=== PATIENT | female | born 2000 | race Caucasian/White ===

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

== ENCOUNTER → 2022-04-28 11:44 | Outpatient (BNVA) | payer BC, MEDICAID, SELFPAY | PROVIDERS: Visit Provider Emergency Medicine | DX: R39.9 Unspecified symptoms and signs involving the genitourinary system (principal); Z32.02 Encounter for pregnancy test, result negative | CPT/HCPCS: 81000; 81025 ==

== ENCOUNTER → 2022-06-12 13:45 | Outpatient (BNVA) | payer BC, MEDICAID, SELFPAY | PROVIDERS: Visit Provider Obstetrics & Gynecology | DX: Z32.00 Encounter for pregnancy test, result unknown (principal) | CPT/HCPCS: 84702 ==

== ENCOUNTER 2022-07-24 12:16 | Emergency (ER) | payer BC, MEDICAID, SELFPAY ==
[2022-07-24 12:45] VITALS: BMI 19.2
[2022-07-24 12:49] VITALS: BP 91/60; PULSE 61; RESP 18; TEMP 36.9; O2SAT 98
--- NOTE | 2022-07-24 13:17 | W.ED.GENADLT ---
HPI - General Adult General: Chief complaint: General Medical Stated complaint: body pain 3xdays Time Seen by Provider: 07/24/22 12:23 History of Present Illness: Patient is a 22-year-old female who comes to the ED with muscle pain. Patient says 3 days ago on July 21 she was having some right upper thigh pain so she went to urgent care and they diagnosed her with a muscle strain of right groin region. Over the last couple days she started having muscle pain in both right and left thighs, lower back and bilateral shoulders. She states that any movement worsens pain. She describes the pain as an achy type pain. Denies any fevers, vomiting, abdominal pain, bladder or bowel symptoms. Associated symptoms: Deny chest pain, dyspnea, headache(s), nausea, rash, palpitations or vomiting Review of Systems Const: Denies: fever(s), chills or fatigue Eyes: Denies: change in vision or eye discomfort ENMT: Denies: throat pain, odynophagia, nasal discharge or nasal congestion Card: Denies: chest pain, palpitations, edema, swelling of feet/ankles, dyspnea on exertion or orthopnea Resp: Denies: dyspnea, productive cough or non-productive cough GI: Denies: abdominal pain, nausea, vomiting, diarrhea, constipation or hematochezia : Denies: flank pain, dysuria or hematuria Musc: Reports: back pain and extremity pain (Bilateral shoulder and bilateral thigh pain); Denies: neck pain or extremity swelling Skin/Breast: Denies: rash or new lesions Neuro: Denies: headache(s), numbness in extremities or weakness in extremities PFS ED PFSH: Medical History Migraines Nexplanon removal No pertinent past medical history neghx: htn,dm,thyroid,dvt/pe PCP: Surgical History No history of previous surgery Family History Grandmother Colon cancer Maternal--dx age unknown Hypertension Paternal Family/Other Diabetes Maternal Aunt Grandfather Hypertension Paternal Denies family history of Ovarian cancer Clotting disorder Heart disease Hypercholesteremia Breast cancer Anesthesia complication Bleeding disorder Uterine cancer Thyroid disease Stroke Social History Smoking and tobacco status: current every day smoker (cigarettes ) Second hand smoke exposure: No Alcohol intake: never Substance/Drug Use: never Female Reproductive History: Para: 0 Physical Exam Const: COMMON NORMALS: no acute distress, patient oriented x3 and alert HENMT: COMMON NORMALS: normocephalic HEAD & SCALP: normocephalic MOUTH: Normal oral and palatal mucosa present THROAT: posterior oropharynx normal and uvula midline Neck/C-Spine: COMMON NORMALS: supple GENERAL: Yes normal visual inspection Resp: COMMON NORMALS: normal respiratory effort, No retractions, No use of accessory muscles and clear to auscultation bilaterally AUSCULTATION: clear to auscultation bilaterally Cardio: COMMON NORMALS: regular rate, regular rhythm, S1 normal heart sound present, S2 normal heart sound present, No gallops present (Cardio), No clicks present (Cardio), No murmurs present (Cardio) and Peripheral pulses 2+ throughout RATE: regular rate RHYTHM: regular rhythm HEART SOUNDS: S1 normal heart sound present and S2 normal heart sound present PERIPHERAL PULSES: Peripheral pulses 2+ throughout GI: COMMON NORMALS: Normal to inspection, nondistended, normoactive bowel sounds present, Soft to palpation, non-tender and no masses PALPATION: Yes Soft to palpation : COMMON NORMALS: Yes no CVA tenderness BLADDER/KIDNEY EXAM: Yes no CVA tenderness Back/Pelvis: COMMON NORMALS: no CVA tenderness Extremity: COMMON NORMALS: normal to inspection and full ROM NARRATIVE EXTREMITY EXAM: Thigh muscle tenderness bilaterally. Patient also has tenderness to shoulders bilaterally but has full range of motion. Neuro: COMMON NORMALS: patient oriented x3 SENSORIUM/ORIENTATION: Yes alert GAIT: Yes Normal gait present Skin: GENERAL SKIN EXAM: dry skin Course Vital Signs: Vital signs: Vital Signs Temperature 98.4 F 07/24/22 12:49 Pulse Rate 61 07/24/22 12:49 Respiratory Rate 18 07/24/22 12:49 Blood Pressure 91/60 07/24/22 12:49 Pulse Oximetry 98 07/24/22 12:49 Oxygen Delivery Me thod Room Air 07/24/22 12:49 MDM - General Adult Medical Decision Making Patient is a 22-year-old female who comes to the ED with muscle pain. Patient says 3 days ago on July 21 she was having some right upper thigh pain so she went to urgent care and they diagnosed her with a muscle strain of right groin region. Over the last couple days she started having muscle pain in both right and left thighs, lower back and bilateral shoulders. She states that any movement worsens pain. She describes the pain as an achy type pain. Denies any fevers, vomiting, abdominal pain, bladder or bowel symptoms. Vitals stable. Patient appears nontoxic in no acute distress or pain. Thigh muscle tenderness bilaterally. Patient also has tenderness to shoulders bilaterally but has full range of motion. Patient was given dose of muscle relaxer and Toradol here in the ED. She was stable for discharge home and diagnosed with generalized muscle aches and was discharged home with a prescription for muscle relaxer and NSAID. Told to follow-up with PCP in the next week for reevaluation. Return to ED precautions given. Patient understood and agreed with plan. Discharge Plan Discharge Patient Disposition: Home Clinical Impression: Generalized muscle ache Condition: Stable Prescriptions: New ibuprofen 800 mg tablet 800 mg PO Q8H PRN (Reason: pain) Qty: 30 0RF cyclobenzaprine 10 mg tablet 10 mg PO BID PRN (Reason: muscle spasm) Qty: 20 0RF No Action rizatriptan [Maxalt] 10 mg tablet See Rx Instructions PO .COMPLEX Qty: 10 1RF Rx Instructions: take 1 tab at onset of headache; if no relief may repeat 1 tab after at least 2 hrs; max = 2 tabs/24 hr PO ibuprofen 600 mg tablet 600 mg PO Q8H PRN (Reason: pain) Qty: 30 0RF lidocaine-epinephrine (PF) 2 %-1:200,000 solution 7.5 ml SUBCUT ONCE Qty: 20 0RF povidone-iodine [Betadine Swabsticks] 10 % swab 1 applic topical ONCE Qty: 1 0RF norgestimate-ethinyl estradiol [Sprintec (28)] 0.25-35 mg-mcg tablet 1 tab PO DAILY Qty: 84 0RF meloxicam 7.5 mg tablet 7.5 mg PO DAILY Qty: 14 0RF Discharge Orders: Discharge ED (Routine); Ordered 07/24/22 Ordered By: Greg Contreras Referrals: Jagjit Flores MD [Primary Care Provider] - Discharge Diet: Regular Discharge Activity: Increase activity as tolerated Activity Restrictions/Additional Instructions: Follow-up with medical provider as directed in the next 5 to 7 days for reevaluation. Take medications as prescribed. Return to the ER or your medical provider if condition worsens. Please read and understand discharge instructions. Thank you for choosing [facility] for your healthcare needs today. Please realize this is an emergency room and that we are providing you with a medical screening exam and this may not be complete and all inclusive of all the testing and or work up that you may need to determine your ailment or severity of your illness. It is very important that you follow up as instructed or that you return to the Emergency Department should you have concerns or if your condition changes or worsens in any way. Coding Level of Care Code ED Printing Sales Representative for Veronique Herbert
[2022-07-24] MEDS: ketorolac 60 mg/2 mL INJ IM (13:55)
[2022-07-24] MEDS: methocarbamol 750 mg Tablet PO (13:56)
== END 2022-07-24 14:02 | disposition home or self-care (01) ==
PROVIDERS: Emergency Provider Physician Assistant; PCP Family Medicine
DX: M79.10 Myalgia, unspecified site (principal)
CPT/HCPCS: 96372; 99284; J1885

== ENCOUNTER → 2022-08-11 15:00 | Outpatient (BNVA) | payer BC, MEDICAID, SELFPAY | PROVIDERS: PCP Family Medicine; Visit Provider Registered Nurse Neonatal Intensive Care | DX: Z30.41 Encounter for surveillance of contraceptive pills (principal) | CPT/HCPCS: 81025 ==

== ENCOUNTER 2022-08-21 04:26 | Emergency (ER) | payer BC, MEDICAID, SELFPAY ==
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
[2022-08-21 04:43] VITALS: BP 132/91; PULSE 89; RESP 14; TEMP 36.6; O2SAT 95
[2022-08-21] MEDS: lidocaine 2% Urojet 20 mL TOPICAL (05:00)
[2022-08-21 05:14] LABS: HCG Qualitative Urine. Negative (Negative)
[2022-08-21 05:20] LABS: Urine Appearance Cloudy (CLEAR); Urine Color Red (Yellow); pH Urine 6 (5-7)
[2022-08-21 05:21] LABS: Add Urine Microscopic? YES; Bilirubin Urine Neg (Negative); Blood Urine 3+ (Negative); Glucose Urine UA Norm (Normal); Ketones Urine 1+ (Negative); Leukocyte Esterase Urine Negative (Negative); Nitrate Urine Negative (Negative); Protein Urine 3+ (Negative); Urobilinogen Urine Neg (Negative)
[2022-08-21 05:22] LABS: Add Urine Culture? Yes; Bacteria Urine 1+ /hpf; RBC Urine 50-80 /hpf (0-2); Squamous Epithelial Cell Urine 0-4 /hpf (0-5)
[2022-08-21] MEDS: ketorolac 30 mg/mL INJ 15 MG IM (05:27)
[2022-08-21] MEDS: HYDROcodone-acetaminophen 5-325 mg Tablet 1 TAB PO (05:27)
== END 2022-08-21 06:06 | disposition home or self-care (01) ==
PROVIDERS: Emergency Provider Emergency Medicine; PCP Family Medicine
DX: S30.23XA Contusion of vagina and vulva, initial encounter (principal); X58.XXXA Exposure to other specified factors, initial encounter; Y93.89 Activity, other specified; Y92.009 Unspecified place in unspecified non-institutional (private) residence as the place of occurrence of the external cause; R31.9 Hematuria, unspecified
CPT/HCPCS: 81001; 81025; 87077; 87086; 87186; 96372; 99284; J1885

== ENCOUNTER → 2022-08-26 18:35 | Outpatient (BNVA) | payer BC, MEDICAID, SELFPAY | PROVIDERS: PCP Family Medicine; Visit Provider Emergency Medicine | DX: R30.0 Dysuria (principal) | CPT/HCPCS: 81000 ==

== ENCOUNTER 2022-09-02 18:46 | Emergency (ER) | payer BC, MEDICAID, SELFPAY ==
[2022-09-02 19:04] VITALS: BP 115/58; PULSE 91; RESP 16; TEMP 36.7; O2SAT 93; BMI 20.2
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
[2022-09-02 19:29] LABS: HCG Qualitative Urine. Negative (Negative)
[2022-09-02] MEDS: cefdinir 300 MG CAPSULE PO (19:46)
[2022-09-02] MEDS: phenazopyridine 100 mg Tablet PO (19:46)
[2022-09-02] MEDS: ibuprofen 600 mg Tablet PO (19:47)
[2022-09-02 20:07] LABS: Add Urine Microscopic? YES; Bilirubin Urine 2+ (Negative); Blood Urine 2+ (Negative); Glucose Urine UA Norm (Normal); Ketones Urine 1+ (Negative); Leukocyte Esterase Urine 2+ (Negative); Nitrate Urine Positive (Negative); Protein Urine Neg (Negative); Specific Gravity, Urine 1.025 (1.005-1.030); Urine Appearance Cloudy (CLEAR); Urine Color Amber (Yellow); Urobilinogen Urine 4 mg/dL (Negative); pH Urine 5 (5-7)
[2022-09-02 20:09] LABS: Add Urine Culture? Yes; Bacteria Urine 1+ /hpf; WBC Urine 80-100 /hpf (0-5)
== END 2022-09-02 19:48 | disposition home or self-care (01) ==
PROVIDERS: Emergency Provider Physician Assistant; PCP Family Medicine
DX: N39.0 Urinary tract infection, site not specified (principal); B96.20 Unspecified Escherichia coli [E. coli] as the cause of diseases classified elsewhere; F17.210 Nicotine dependence, cigarettes, uncomplicated
CPT/HCPCS: 81001; 81025; 87077; 87086; 87186; 99283

== ENCOUNTER → 2022-09-14 15:06 | Outpatient (BNVA) | payer BC, MEDICAID, SELFPAY | PROVIDERS: PCP Family Medicine; Visit Provider Obstetrics & Gynecology | DX: N92.6 Irregular menstruation, unspecified (principal) | CPT/HCPCS: 81025 ==

== ENCOUNTER → 2022-11-17 11:57 | Outpatient (BNVA) | payer BC, MEDICAID, SELFPAY | PROVIDERS: PCP Family Medicine; Visit Provider Emergency Medicine | DX: R52 Pain, unspecified (principal); J02.9 Acute pharyngitis, unspecified; Z11.52 Encounter for screening for COVID-19 | CPT/HCPCS: 87426; 87880 ==

== ENCOUNTER → 2022-12-10 10:10 | Outpatient (BNVA) | payer BC, MEDICAID, SELFPAY | PROVIDERS: PCP Family Medicine; Visit Provider Obstetrics & Gynecology | DX: N64.4 Mastodynia (principal) | CPT/HCPCS: 81025 ==

== ENCOUNTER → 2022-12-21 10:27 | Outpatient (BNVA) | payer BC, MEDICAID, SELFPAY | PROVIDERS: PCP Family Medicine; Visit Provider Obstetrics & Gynecology | DX: R10.2 Pelvic and perineal pain (principal) | CPT/HCPCS: 76830 ==

== ENCOUNTER → 2023-01-18 18:24 | Outpatient (BNVA) | payer BC, MEDICAID, SELFPAY | PROVIDERS: PCP Family Medicine; Visit Provider Nurse Practitioner | DX: R30.0 Dysuria (principal) | CPT/HCPCS: 81000 ==

== ENCOUNTER → 2023-02-20 13:48 | Outpatient (BNVA) | payer BC, MEDICAID, SELFPAY | PROVIDERS: PCP Family Medicine; Visit Provider Registered Nurse Neonatal Intensive Care | DX: N92.6 Irregular menstruation, unspecified (principal) | CPT/HCPCS: 81025 ==

== ENCOUNTER 2023-03-01 18:45 | Emergency (ER) | payer MEDICAID, SELFPAY ==
[2023-03-01 18:55] VITALS: BP 114/79; PULSE 76; RESP 16; TEMP 36.4; O2SAT 100
[2023-03-01 19:24] VITALS: BP 135/63; PULSE 85; RESP 16; O2SAT 83
[2023-03-01 19:25] VITALS: O2SAT 94
[2023-03-01 19:29] LABS: Add Urine Microscopic? NO; Charge for UA Resulting for Rev
--- NOTE | 2023-03-01 19:30 | ED_ITS ---
HPI - Abdominal Pain 2 General: Chief Complaint: Abdominal Pain Stated Complaint: ABD Pain\Preg Time Seen by Provider: 03/01/23 18:48 History of Present Illness: Patient presents to the ER with complaints of low back pain low abdominal pelvic pain bilateral hip pain and sensitivity to touch on the left thigh. Patient states this all started this morning. Patient has taken 2 test 1 at home and 1 at the urgent care and both showed she is . Patient is on for sure how far along she has because she has very irregular periods. Patient had a earlier this summer without complaints other than some intermittent back pain thought from the epidural. Review of Systems 2 General: Reports: 10 or more systems reviewed and unremarkable except in HPI and below PFSH ED 2 PFSH: Medical History Nexplanon removal Migraines No pertinent past medical history neghx: htn,dm,thyroid,dvt/pe PCP: Surgical History No history of previous surgery Family History Grandmother Colon cancer Maternal--dx age unknown Hypertension Paternal Family/Other Diabetes Maternal Aunt Grandfather Hypertension Paternal Denies family history of Ovarian cancer Clotting disorder Heart disease Hypercholesteremia Breast cancer Anesthesia complication Bleeding disorder Uterine cancer Thyroid disease Stroke Social History Smoking and tobacco/nicotine status: current every day tobacco/nicotine user (cigarettes ) Second hand smoke exposure: No Alcohol intake: never Substance/Drug Use: never Female Reproductive History: Para: 0 Physical Exam 2 Const: COMMON NORMALS: no acute distress, average body habitus, patient oriented x3, no limitations, healthy appearing, alert and well nourished HENMT: COMMON NORMALS: normocephalic, atraumatic, hearing grossly normal bilaterally, external ears normal, Normal external nose present, moist oral mucous membranes and oropharynx normal HEAD & SCALP: normocephalic and atraumatic NOSE: Normal external nose present EXTERNAL EAR: Yes external ears normal Neck/C-Spine: COMMON NORMALS: full ROM, no lymphadenopathy, supple, no meningeal signs, no JVD and Thyroid normal THYROID: Thyroid normal Chest: COMMONS NORMALS: normal inspection of the chest and normal palpation of entire chest wall Resp: COMMON NORMALS: normal respiratory effort, No retractions, No use of accessory muscles and clear to auscultation bilaterally AUSCULTATION: clear to auscultation bilaterally Cardio: COMMON NORMALS: no JVD, regular rate, regular rhythm, S1 normal heart sound present, S2 normal heart sound present, No gallops present (Cardio), No clicks present (Cardio), No murmurs present (Cardio) and No rub (Cardio) R ATE: regular rate RHYTHM: regular rhythm HEART SOUNDS: S1 normal heart sound present and S2 normal heart sound present GI: COMMON NORMALS: Soft to palpation and No hepatosplenomegaly present; negative for non-tender (Tender to palpate worse lower abdomen.) PALPATION: Y es Soft to palpation and Yes No hepatosplenomegaly present Neuro: COMMON NORMALS: patient oriented x3 SENSORIUM/ORIENTATION: Yes alert MENINGEAL SIGNS: Yes no meningeal signs Course 2 Vital Signs: Vital signs: Vital Signs Temperature 97.6 F 03/01/23 18:55 Pulse Rate 93 03/01/23 20:32 Respiratory Rate 16 03/01/23 19:24 Blood Pressure 113/71 03/01/23 20:32 Pulse Oximetry 97 03/01/23 20:32 Oxygen Delivery Me thod Room Air 03/01/23 20:13 Oxygen Flow Rate 1.5 03/01/23 19:25 MDM - Abdominal Pain Medical Decision Making Patient presents to the ER with abdominal pain and positive test at home. Lab work was obtained as well as ultrasound. Patient is estimated gestational age of 8 weeks and 6 days with a due date of October 05, 2023. 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 Differential Diagnosis Likely abdominal pain; Unlikely acute appendicitis, calculus of kidney, constipation, diverticulitis, endometriosis, gastroenteritis, pancreatitis or small bowel obstruction Medical Records I reviewed the patient's medical records. Lab Data I reviewed the patient's lab results. 03/01/23 19:20 03/01/23 19:20 Labs/Radiology: Radiology Impressions Obstetrics Ultrasound 03/01/23 20:03 IMPRESSION: 1. Intrauterine with estimated gestational age of 8 weeks 6 days corresponding to an estimated date of delivery October 05, 2023. No evidence of acute abnormality. Laboratory Results WBC 12.15 10^3/uL (3.29-11.43) H 03/01/23 19:20 RBC 4.24 10^6/uL (3.85-5.65) 03/01/23 19:20 Hgb 12.60 g/dL (11.27-16.99) 03/01/23 19:20 Hct 37.7 % (36-47) 03/01/23 19:20 MCV 88.9 fl (85-98) 03/01/23 19:20 MCH 29.7 pg (27-33) 03/01/23 19:20 MCHC 33.4 g/dL (30-55) 03/01/23 19:20 RDW 12.2 % (12.1-15.1) 03/01/23 19:20 Plt Count 325 10^3/cmm (157-399) 03/01/23 19:20 MPV 10.1 fL (7.4-10.4) 03/01/23 19:20 Neut % (Auto) 70.0 % 03/01/23 19:20 Lymph % (Auto) 21.8 % 03/01/23 19:20 [place] % (Auto) 7.2 % 03/01/23 19:20 Eos % (Auto) 0.1 % 03/01/23 19:20 Baso % (Auto) 0.4 % 03/01/23 19:20 Neut # (Auto) 8.51 10^3/uL (1.8-7.7) H 03/01/23 19:20 Lymph # (Auto) 2.7 10^3/uL (0.8-4.8) 03/01/23 19:20 [place] # (Auto) 0.9 10^3/uL (0.2-0.9) 03/01/23 19:20 Eos # (Auto) 0.0 10^3/uL (0.0-0.8) 03/01/23 19:20 Baso # (Auto) 0.1 10^3/uL (0.0-0.1) 03/01/23 19:20 Nucleated RBC % (auto) 0 % 03/01/23 19:20 Nucleated RBCs # 0.0 /100WBC 03/01/23 19:20 Sodium 137 mmol/L (136-145) 03/01/23 19:20 Potassium 3.4 mmol/L (3.5-5.1) L 03/01/23 19:20 Chloride 101 mmol/L (98-107) 03/01/23 19:20 Carbon Dioxide 26 mmol/L (22-29) 03/01/23 19:20 Anion Gap 13.4 (5-19) 03/01/23 19:20 BUN 8 mg/dL (6-20) 03/01/23 19:20 Creatinine 0.4 mg/dL (0.5-0.9) L 03/01/23 19:20 GFR Calculation 201.5 mL/min (90-130) H 03/01/23 19:20 Glucose 95 mg/dL (65-115) 03/01/23 19:20 Calculated Osmolality 282 mOsm/kg (285-295) L 03/01/23 19:20 Calcium 9.1 mg/dL (8.5-10.5) 03/01/23 19:20 Total Bilirubin 0.2 mg/dL (0.15-1.2) 03/01/23 19:20 AST 27 U/L (0-32) 03/01/23 19:20 ALT 76 U/L (0-33) H 03/01/23 19:20 Alkaline Phosphatase 105 U/L (35-105) 03/01/23 19:20 Total Protein 6.7 g/dL (6.6-8.7) 03/01/23 19:20 Albumin 4.1 g/dL (3.5-5.2) 03/01/23 19:20 Globulin 2.6 g/dL (1.3-4.6) 03/01/23 19:20 Ser , Semi-Qnt 26235.00 mIU/mL 03/01/23 19:20 Urine Color Yellow (Yellow) 03/01/23 19:00 Urine Appearance Clear (CLEAR) 03/01/23 19:00 Urine pH 5 (5-7) 03/01/23 19:00 Ur Specific [place] 1.020 (1.005-1.030) 03/01/23 19:00 Urine Protein Neg (Negative) 03/01/23 19:00 Urine Glucose (UA) Norm (Normal) 03/01/23 19:00 Urine Ketones Negative (Negative) 03/01/23 19:00 Urine Blood Neg (Negative) 03/01/23 19:00 Urine Nitrate Negative (Negative) 03/01/23 19:00 Urine Bilirubin Neg (Negative) 03/01/23 19:00 Urine Urobilinogen Norm mg/dL (Negative) 03/01/23 19:00 Ur Leukocyte Esterase Negative (Negative) 03/01/23 19:00 All radiology interpretation(s) finalized by discharge Discharge Plan Discharge Patient Disposition: Home Clinical Impression: Abdominal pain in Condition: Stable Prescriptions: No Action rizatriptan [Maxalt] 10 mg tablet See Rx Instructions PO .COMPLEX Qty: 10 1RF Rx Instructions: take 1 tab at onset of headache; if no relief may repeat 1 tab after at least 2 hrs; max = 2 tabs/24 hr PO ibuprofen 600 mg tablet 600 mg PO Q8H PRN (Reason: pain) Qty: 30 0RF lidocaine-epinephrine (PF) 2 %-1:200,000 solution 7.5 ml SUBCUT ONCE Qty: 20 0RF povidone-iodine [Betadine Swabsticks] 10 % swab 1 applic topical ONCE Qty: 1 0RF diclofenac sodium 3 % gel 1 applic topical BID Qty: 100 0RF Discharge Orders: Discharge ED (Routine); Ordered 03/01/23 Ordered By: Luigi Shen Referrals: Jagjit Flores MD [Primary Care Provider] - 1 week Patient Instructions: Abdominal Pain in (ED) Activity Restrictions/Additional Instructions: Please follow-up with your CONTINUOUS VULCANIZING MACHINE OPERATOR within the next 7 to 10 days for further evaluation and treatment as needed. If pain worsens please feel free to return to the ER. Coding Level of Care Code ED Dumpster Driver for Veronique Herbert
[2023-03-01 19:32] LABS: Basophils # 0.1 10^3/uL (0.0-0.1); Basophils % 0.4 %; Eosinophils % 0.1 %; Hematocrit 37.7 % (36-47); Lymphocytes # 2.7 10^3/uL (0.8-4.8); Lymphocytes % 21.8 %; Mean Corpuscular HGB Conc 33.4 g/dL (30-55); Mean Corpuscular Hemoglobin 29.7 pg (27-33); Mean Corpuscular Volume 88.9 fl (85-98); Mean Platelet Volume 10.1 fL (7.4-10.4); Monocytes # 0.9 10^3/uL (0.2-0.9); Monocytes % 7.2 %; Neutrophils # 8.51 10^3/uL (1.8-7.7); Nucleated Red Blood Cells % 0 %; Platelet Count 325 10^3/cmm (157-399); Red Blood Count 4.24 10^6/uL (3.85-5.65); Red Cell Distribution Width 12.2 % (12.1-15.1); White Blood Count 12.15 10^3/uL (3.29-11.43)
[2023-03-01 19:33] LABS: Bilirubin Urine Neg (Negative); Blood Urine Neg (Negative); Glucose Urine UA Norm (Normal); Ketones Urine Negative (Negative); Leukocyte Esterase Urine Negative (Negative); Nitrate Urine Negative (Negative); Protein Urine Neg (Negative); Urine Appearance Clear (CLEAR); Urine Color Yellow (Yellow); Urobilinogen Urine Norm (Negative); pH Urine 5 (5-7)
[2023-03-01 20:01] LABS: Alanine Aminotransferase 76 U/L (0-33); Albumin Level 4.1 g/dL (3.5-5.2); Alkaline Phosphatase 105 U/L (35-105); Anion Gap 13.4 (5-19); Aspartate Amino Transferase 27 U/L (0-32); Blood Urea Nitrogen 8 mg/dL (6-20); Calcium 9.1 mg/dL (8.5-10.5); Carbon Dioxide 26 mmol/L (22-29); Chloride 101 mmol/L (98-107); Globulin 2.6 g/dL (1.3-4.6); Glomerular Filtration Rate 201.5 mL/min (90-130); Glucose 95 mg/dL (65-115); Osmolality Calculated 282 mOsm/kg (285-295); Potassium 3.4 mmol/L (3.5-5.1); Sodium 137 mmol/L (136-145); Total Bilirubin 0.2 mg/dL (0.15-1.2); Total Protein 6.7 g/dL (6.6-8.7)
--- NOTE | 2023-03-01 20:03 | USR_ITS ---
PROCEDURE INFORMATION: Exam: US , Limited Exam date and time: 03/01/2023 8:41 PM Age: 23 years old Clinical indication: complicated by abdominal or pelvic pain; Left lower quadrant; First trimester (<14 weeks 0 days); Gestational age or lmp: 8w 6d; ; Prior surgery; Surgery date: 6+ months; Surgery type: Csection oct 2021; Additional info: Positive , low abd/pelvic pain, irregular periods TECHNIQUE: Imaging protocol: Real-time ultrasound of the maternal uterus with image documentation. Exam focused on the clinical indication. COMPARISON: US OB lmt with transvaginal 11/06/2021 8:52 AM FINDINGS: Gestation: There is an intrauterine with crown-rump length measuring 22 mm, corresponding to an estimated gestational age of 8 weeks 6 days. heart rate measures 171 bpm. A yolk sac is visualized. Amniotic fluid is unremarkable. No evidence of subchorionic hemorrhage. MATERNAL: Uterus: Uterus measures 10.4 x 7.6 x 5.6 cm. Right ovary/adnexa: Right ovary measures 2.7 x 1.7 x 2.7 cm. Flow is visualized. No evidence of adnexal mass. Left ovary/adnexa: Left ovary measures 1.7 x 1.1 x 1.9 cm. Flow is visualized. No evidence of adnexal mass. Intraperitoneal space: Trace free fluid. US/US OB limited [id number] IMPRESSION: 1. Intrauterine with estimated gestational age of 8 weeks 6 days corresponding to an estimated date of delivery October 05, 2023. No evidence of acute abnormality.
[2023-03-01 20:13] VITALS: BP 109/54; PULSE 77; O2SAT 99
[2023-03-01 20:32] VITALS: BP 113/71; PULSE 93; O2SAT 97
[2023-03-01 21:51] VITALS: BP 112/67; PULSE 85; RESP 17; O2SAT 98
== END 2023-03-01 21:53 | disposition home or self-care (01) ==
PROVIDERS: Emergency Provider Emergency Medicine; PCP Family Medicine
DX: O26.891 Other specified pregnancy related conditions, first trimester (principal); R10.2 Pelvic and perineal pain; O99.331 Smoking (tobacco) complicating pregnancy, first trimester; F17.210 Nicotine dependence, cigarettes, uncomplicated; Z3A.08 8 weeks gestation of pregnancy
CPT/HCPCS: 76815; 80053; 81003; 84702; 85025; 99284

== ENCOUNTER → 2023-03-03 13:04 | Outpatient (BNVA) | payer SELFPAY | PROVIDERS: PCP Family Medicine; Visit Provider Nurse Practitioner Women's Health | DX: Z34.90 Encounter for supervision of normal pregnancy, unspecified, unspecified trimester (principal); Z3A.00 Weeks of gestation of pregnancy not specified | CPT/HCPCS: 81000 ==

== ENCOUNTER 2023-03-09 18:30 | Emergency (ER) | payer MEDICAID, SELFPAY ==
[2023-03-09 18:35] VITALS: BP 107/70; PULSE 81; RESP 14; TEMP 36.6; O2SAT 99; BMI 18.8
--- NOTE | 2023-03-09 18:52 | XRR_ITS ---
PROCEDURE INFORMATION: Exam: XR Right Knee Exam date and time: 03/09/2023 7:00 PM Age: 23 years old Clinical indication: Injury or trauma; Fall; Blunt trauma; Knee; Right TECHNIQUE: Imaging protocol: Radiologic exam of the right knee. Views: 3 views. COMPARISON: No relevant prior studies available. FINDINGS: Bones/joints: Normal. Soft tissues: Normal. XR/XR knee RT 3V* [id number] IMPRESSION: No acute findings.
--- NOTE | 2023-03-09 19:17 | W.ED.LOWEXIN ---
HPI - Extremity Injury (Lower) General: Chief Complaint: Extremity Injury, Lower Stated Complaint: Right leg/knee pain Time Seen by Provider: 03/09/23 19:01 Source: patient Mode of arrival: ambulatory Limitations: no limitations History of Present Illness: Patient is a 23-year-old female who presents to ED today for evaluation of a right lower extremity injury that she sustained yesterday after slipping and falling on ice. Patient states she injured her right hip/pelvis. She states pain seems to radiate down into her knee. She states she is ambulatory with a limp. Her main pain is in her right groin. Patient does feel like she did the splits during her fall. She is reporting she is roughly 8 to 9 weeks . MD complaint: hip injury and thigh injury Onset (ago): day(s) (yesterday) Injury: Right: hip Place: home Severity: moderate Relieving factors: immobilization Exacerbating factors: weight bearing and movement Context: fall and direct blow Associated symptoms: Reports no associated symptoms Other symptoms: none Review of Systems Card: Denies: chest pain Resp: Denies: dyspnea GI: Denies: abdominal pain Musc: Reports: joint pain (R hip/groin); Denies: neck pain, back pain, extremity pain, extremity swelling, joint swelling, joint redness or joint warmth Neuro: Denies: numbness in extremities, weakness in extremities or sensory changes [facility] ED PFSH: Medical History Nexplanon removal Migraines No pertinent past medical history neghx: htn,dm,thyroid,dvt/pe PCP: Surgical History H/O section 11/06/2021: primary low transverse delivery performed by Dr. Hassan at [facility]. Family History Grandmother Colon cancer Maternal--dx age unknown Hypertension Paternal Family/Other Diabetes Maternal Aunt Grandfather Hypertension Paternal Denies family history of Ovarian cancer Clotting disorder Heart disease Hypercholesteremia Breast cancer Anesthesia complication Bleeding disorder Uterine cancer Thyroid disease Stroke Female Reproductive History: Para: 0 Physical Exam Const: COMMON NORMALS: no acute distress, average body habitus, patient oriented x3, no limitations, healthy appearing, alert and well nourished GI: COMMON NORMALS: Normal to inspection, nondistended, normoactive bowel sounds present, Soft to palpation and non-tender PALPATION: Yes Soft to palpation Back/Pelvis: COMMON NORMALS: thoracic and lumbar spine normal to inspection Extremity: COMMON NORMALS: normal to inspection, full ROM, capillary refill normal, no joint enlargement, no clubbing, cyanosis or edema, no calf tenderness and no pedal edema GENERAL: Yes normal exam except as noted RIGHT LOWER EXTREMITY: Yes hip joint (TTP R inguinal region) Right hip: Yes ROM (normal) and Yes neurovascular exam (normal) Neuro: COMMON NORMALS: patient oriented x3, moves all extremities, no focal motor deficits and no sensory deficits noted SENSORIUM/ORIENTATION: Yes alert GAIT: Yes Other gait observations present (limping gait) Course Vital Signs: Vital signs: Vital Signs Temperature 97.8 F 03/09/23 18:35 Pulse Rate 81 03/09/23 18:35 Respiratory Rate 14 03/09/23 18:35 Blood Pressure 107/70 03/09/23 18:35 Pulse Oximetry 99 03/09/23 18:35 Oxygen Delivery Me thod Room Air 03/09/23 18:35 MDM - Extremity Injury (Lower) Medical Decision Making Patient here for complaints of right hip pain following a slip and fall on ice yesterday. XR of her right knee was ordered by another provider from triage based on her initial triage complaint. She was not really tender here on my initial assessment. This XR was indeed negative. Discussed imaging of her right hip and pelvis however patient is approximately 8 to 9 weeks and I do not want to subject her to unnecessary radiation. It is unlikely she has a hip or pelvic fracture based on history/clinical examination. Recommend follow-up with her primary care provider in a week or so if symptoms do not seem to be improving. Symptoms most likely related to a right inguinal strain. Medical Records I reviewed the patient's medical records. Lab Data Radiology Impressions Knee X-Ray 03/09/23 18:52 IMPRESSION: No acute findings. All radiology interpretation(s) finalized by discharge Discharge Plan Discharge Patient Disposition: Home Clinical Impression: Strain of right inguinal muscle Qualifiers: Encounter type: initial encounter Qualified Code(s): S39.013A - Strain of muscle, fascia and tendon of pelvis, initial encounter Condition: Stable Prescriptions: No Action lidocaine-epinephrine (PF) 2 %-1:200,000 solution 7.5 ml SUBCUT ONCE Qty: 20 0RF povidone-iodine [Betadine Swabsticks] 10 % swab 1 applic topical ONCE Qty: 1 0RF No Known Home Medications Discharge Orders: Discharge ED (Routine); Ordered 03/09/23 Ordered By: Ellie Carpenter Referrals: Jagjit Flores MD [Primary Care Provider] - Activity Restrictions/Additional Instructions: As we discussed because of your I would hold off on any imaging of your hip and pelvis. Please follow-up with your primary care provider in approximately a week if symptoms do not seem to be improving. Stand Alone Forms: Work/School Release Coding Level of Care Code ED [employer] for [employer]
== END 2023-03-09 19:27 | disposition home or self-care (01) ==
PROVIDERS: Emergency Provider Physician Assistant; PCP Family Medicine
DX: S39.013A Strain of muscle, fascia and tendon of pelvis, initial encounter (principal); W00.0XXA Fall on same level due to ice and snow, initial encounter
CPT/HCPCS: 73562; 99283

== ENCOUNTER → 2023-03-18 13:20 | Outpatient (BNVA) | payer MEDICAID, SELFPAY | PROVIDERS: PCP Family Medicine; Visit Provider Nurse Practitioner Women's Health | DX: Z34.92 Encounter for supervision of normal pregnancy, unspecified, second trimester (principal); Z3A.14 14 weeks gestation of pregnancy | CPT/HCPCS: 76801; 80307; 85025; 86592; 86762; 86803; 86850; 86900; 87086; 87340; 87806 ==

== ENCOUNTER → 2023-04-08 08:04 | Outpatient (BNVA) | payer MEDICAID, SELFPAY | PROVIDERS: PCP Family Medicine; Visit Provider Obstetrics & Gynecology | DX: O09.899 Supervision of other high risk pregnancies, unspecified trimester (principal); Z3A.00 Weeks of gestation of pregnancy not specified | CPT/HCPCS: 84315; 87400; 87880 ==

== ENCOUNTER → 2023-04-16 07:57 | Outpatient (BNVA) | payer MEDICAID, SELFPAY | PROVIDERS: PCP Family Medicine; Visit Provider Nurse Practitioner Women's Health | DX: O09.899 Supervision of other high risk pregnancies, unspecified trimester (principal); Z3A.00 Weeks of gestation of pregnancy not specified | CPT/HCPCS: 84315; 87491; 87591 ==

== ENCOUNTER → 2023-05-19 14:26 | Outpatient (BNVA) | payer MEDICAID, SELFPAY | PROVIDERS: PCP Family Medicine; Visit Provider Obstetrics & Gynecology | DX: Z34.92 Encounter for supervision of normal pregnancy, unspecified, second trimester (principal); Z3A.20 20 weeks gestation of pregnancy | CPT/HCPCS: 76805 ==

== ENCOUNTER 2023-06-05 14:30 | Outpatient (CLI) | payer MEDICAID, SELFPAY ==
[2023-06-05 14:49] VITALS: BP 106/61; PULSE 82; RESP 16; BMI 21.1
[2023-06-05 15:38] LABS: Add Urine Culture? No; Amphetamines Screen Urine Negative (Negative); Bacteria Urine 1+ /hpf; Barbiturates Screen Urine Negative (Negative); Benzodiazepines Screen Urine Negative (Negative); Bilirubin Urine 1+ (Negative); Blood Urine Neg (Negative); Cocaine Screen Urine Negative (Negative); Glucose Urine UA Trace (Normal); Ketones Urine 1+ (Negative); Leukocyte Esterase Urine Trace (Negative); Mucus Urine 3+ /hpf; Nitrate Urine Negative (Negative); Opiate Screen Urine Negative (Negative); PCP Screen Urine Negative (Negative); Protein Urine 1+ (Negative); Specific Gravity, Urine 1.025 (1.005-1.030); THC Screen Urine Positive (Negative); Urine Appearance Cloudy (CLEAR); Urine Color Yellow (Yellow); Urobilinogen Urine 1 mg/dL (Negative); pH Urine 5 (5-7)
[2023-06-05 15:44] VITALS: BP 106/61; PULSE 82; RESP 16
== END 2023-06-05 15:52 | disposition home or self-care (01) ==
LOC: OPOB 14:34 → OBGYN 14:35
PROVIDERS: PCP Family Medicine; Visit Provider Obstetrics & Gynecology
DX: O26.899 Other specified pregnancy related conditions, unspecified trimester (principal); Z3A.00 Weeks of gestation of pregnancy not specified; R10.2 Pelvic and perineal pain
CPT/HCPCS: 80306; 81001; 99211

== ENCOUNTER → 2023-06-22 12:26 | Outpatient (BNVA) | payer MEDICAID, SELFPAY | PROVIDERS: PCP Family Medicine; Visit Provider Obstetrics & Gynecology | DX: Z34.92 Encounter for supervision of normal pregnancy, unspecified, second trimester (principal); Z3A.25 25 weeks gestation of pregnancy | CPT/HCPCS: 76816 ==

== ENCOUNTER → 2023-06-25 09:46 | Outpatient (BNVA) | payer MEDICAID, SELFPAY | PROVIDERS: PCP Family Medicine; Visit Provider Obstetrics & Gynecology | DX: O09.899 Supervision of other high risk pregnancies, unspecified trimester (principal); Z3A.00 Weeks of gestation of pregnancy not specified | CPT/HCPCS: 82950 ==

== ENCOUNTER → 2023-07-15 09:38 | Outpatient (BNVA) | payer MEDICAID, SELFPAY | PROVIDERS: PCP Family Medicine; Visit Provider Obstetrics & Gynecology | DX: O09.899 Supervision of other high risk pregnancies, unspecified trimester (principal); Z3A.00 Weeks of gestation of pregnancy not specified | CPT/HCPCS: 84315; 85025 ==

== ENCOUNTER → 2023-07-20 08:14 | Outpatient (BNVA) | payer MEDICAID, SELFPAY | PROVIDERS: PCP Family Medicine; Visit Provider Obstetrics & Gynecology | DX: O09.899 Supervision of other high risk pregnancies, unspecified trimester (principal); Z3A.00 Weeks of gestation of pregnancy not specified | CPT/HCPCS: 82951; 82952 ==

== ENCOUNTER 2023-08-10 15:27 | Outpatient (CLI) | payer MEDICAID, SELFPAY ==
[2023-08-10 15:27] VITALS: BMI 21.2
[2023-08-10 15:53] VITALS: BP 124/75; PULSE 106
[2023-08-10 16:08] VITALS: BP 115/71; PULSE 101
[2023-08-10 16:23] VITALS: BP 110/74; PULSE 93
== END 2023-08-10 16:54 | disposition home or self-care (01) ==
LOC: OPOB 15:30 → OBGYN 15:30
PROVIDERS: PCP Family Medicine; Visit Provider Obstetrics & Gynecology
DX: O26.899 Other specified pregnancy related conditions, unspecified trimester (principal); Z3A.00 Weeks of gestation of pregnancy not specified; R10.2 Pelvic and perineal pain
CPT/HCPCS: 59025; 99211

== ENCOUNTER → 2023-09-09 08:07 | Outpatient (BNVA) | payer MEDICAID, SELFPAY | PROVIDERS: PCP Family Medicine; Visit Provider Nurse Practitioner Women's Health | DX: O09.893 Supervision of other high risk pregnancies, third trimester (principal); Z3A.36 36 weeks gestation of pregnancy | CPT/HCPCS: 84315; 87081 ==

== ENCOUNTER 2023-09-15 09:34 | Outpatient (CLI) | payer MEDICAID, SELFPAY ==
[2023-09-15] VITALS (10 sets, daily range): BP systolic 97–117; BP diastolic 57–75; PULSE 86–114; BMI 22.9
== END 2023-09-15 12:24 | disposition home or self-care (01) ==
LOC: OPOB 09:34 → OBGYN 09:36
PROVIDERS: PCP Family Medicine; Visit Provider Obstetrics & Gynecology
DX: O26.899 Other specified pregnancy related conditions, unspecified trimester (principal); Z3A.00 Weeks of gestation of pregnancy not specified; N89.8 Other specified noninflammatory disorders of vagina
CPT/HCPCS: 59025; 99211

== ENCOUNTER 2023-09-26 15:13 | Outpatient (CLI) | payer MEDICAID, SELFPAY ==
[2023-09-26 15:15] VITALS: BMI 23.6
[2023-09-26 15:37] VITALS: BP 107/65; PULSE 95
[2023-09-26 15:52] VITALS: BP 106/67; PULSE 113
[2023-09-26 16:08] VITALS: BP 113/72; PULSE 105
[2023-09-26 16:22] VITALS: BP 110/73; PULSE 99
[2023-09-26 16:37] VITALS: BP 102/67; PULSE 98
[2023-09-26 16:53] VITALS: BP 109/69; PULSE 100
== END 2023-09-26 17:07 | disposition home or self-care (01) ==
LOC: OPOB 15:14 → OBGYN 15:21
PROVIDERS: PCP Family Medicine; Visit Provider Obstetrics & Gynecology
DX: O26.899 Other specified pregnancy related conditions, unspecified trimester (principal); Z3A.00 Weeks of gestation of pregnancy not specified; R10.9 Unspecified abdominal pain
CPT/HCPCS: 59025; 99211

== ENCOUNTER 2023-09-27 21:41 | Outpatient (CLI) | payer MEDICAID, SELFPAY ==
[2023-09-27] VITALS (7 sets, daily range): BP systolic 90–144; BP diastolic 54–89; PULSE 93–113; BMI 23.4
[2023-09-28 00:11] VITALS: BP 92/60; PULSE 94
[2023-09-28 00:51] VITALS: BP 103/66; PULSE 107
== END 2023-09-28 01:13 | disposition home or self-care (01) ==
LOC: OPOB 21:43 → OBGYN 21:44
PROVIDERS: PCP Family Medicine; Visit Provider Obstetrics & Gynecology
DX: O26.899 Other specified pregnancy related conditions, unspecified trimester (principal); Z3A.00 Weeks of gestation of pregnancy not specified; R10.9 Unspecified abdominal pain
CPT/HCPCS: 59025; 99211

== ENCOUNTER 2023-10-05 06:07 | Inpatient (IN) | payer MEDICAID, SELFPAY ==
[2023-10-05] VITALS (44 sets, daily range): BP systolic 93–129; BP diastolic 37–76; PULSE 65–112; RESP 18; O2SAT 97–100; BMI 23.6
--- NOTE | 2023-10-05 07:28 | PM.OPHPUD ---
Labor & Delivery H&P Update Date of Procedure: October 05, 2023 Date H&P Performed: 10/04/23 H&P update information: I have reviewed H&P completed within last 30 days, I have examined patient prior to procedure and No changes to prior documentation Admission Diagnosis: Planned procedure: Operation Date: 10/05/23 08:45 Proposed Procedures p Section Repeat 18050, O34.219(Not Applicable) - Jason Hassan MD
[2023-10-05 07:35] LABS: Basophils # 0.1 10^3/uL (0.0-0.1); Basophils % 0.3 %; Eosinophils % 0.1 %; Hematocrit 32.5 % (36-47); Lymphocytes # 3.1 10^3/uL (0.8-4.8); Lymphocytes % 18.5 %; Mean Corpuscular HGB Conc 32.9 g/dL (30-55); Mean Corpuscular Hemoglobin 28.5 pg (27-33); Mean Corpuscular Volume 86.7 fl (85-98); Mean Platelet Volume 10.8 fL (7.4-10.4); Monocytes # 1.6 10^3/uL (0.2-0.9); Monocytes % 9.7 %; Neutrophils # 11.61 10^3/uL (1.8-7.7); Neutrophils % 68.8 %; Nucleated Red Blood Cells % 0 %; Platelet Count 268 10^3/cmm (157-399); Red Blood Count 3.75 10^6/uL (3.85-5.65); White Blood Count 16.89 10^3/uL (3.29-11.43)
[2023-10-05] MEDS: lactated ringers 1,000 ML 999 ML IV (07:57)
[2023-10-05 08:19] LABS: Amphetamines Screen Urine Negative (Negative); Barbiturates Screen Urine Negative (Negative); Benzodiazepines Screen Urine Negative (Negative); Cocaine Screen Urine Negative (Negative); Opiate Screen Urine Negative (Negative); PCP Screen Urine Negative (Negative); THC Screen Urine Negative (Negative)
[2023-10-05] MEDS: citric acid-sodium citrate 30 mL UDC PO (08:36)
[2023-10-05] MEDS: metoclopramide 5 mg/mL SDV 2 mL 10 MG IVP (08:36)
[2023-10-05] MEDS: famotidine 20 mg/2 mL INJ IVP (08:36)
[2023-10-05] MEDS: ceFAZolin 2,000 mg SDV 2000 MG IVP (08:37)
--- NOTE | 2023-10-05 08:40 | P.ANESASSM_ITS ---
Pre-Anesthetic Assessment Height/Weight: Height 5 ft 5 in Weight 142 lb Pulse Resp BP O2 Del Method 78 18 104/58 Room Air 10/05/23 08:18 10/05/23 07:16 10/05/23 08:18 10/05/23 07:20 Operation Date: 10/05/23 08:45 Proposed Procedures p Section Repeat 73406, O34.219(Not Applicable) - Jason Hassan MD Last intake: Intake Last Liquid Date 10/04/23 Last Liquid Time 22:00 Last Solid Date 10/04/23 Last Solid Time 22:00 Social Tobacco vapes Exam alert and oriented x 3 Airway Submandibular: within normal limits Cervical ROM: within normal limits Mallampati: Class II Dentition: full Pulmonary None reported Anesthetic Plan ASA status: 2 Anesthesia: Regional (specify below) Other: NO prior issues with Anesthesia NPO since MN Prior C section(epidural) w.o. issues METS>4 current smoker Patient denies issues during this Labs reviewed and acceptable for spinal Medications/Allergies Home Medications Medication Instructions Recorded Confirmed Last Taken Type PNV 153-FA 400 mcg-om3 35 mg-dha 1 tab PO DAILY 04/16/23 10/05/23 09/26/23 History 25 mg-epa 5 mg-fish oil chew tablet ( Gummies) Allergies Allergy/AdvReac Type Severity Reaction Status Date / Time latex Allergy ALGY-Hives Verified 09/30/23 14:38 loratadine [From Claritin] Allergy hives Verified 09/30/23 14:38 [facility] Anesthesia Medical History Migraines No pertinent past medical history neghx: htn,dm,thyroid,dvt/pe PCP: Surgical History H/O section 11/06/2021: primary low transverse delivery performed by Dr. Hassan at [facility]. Family History Grandmother Colon cancer Maternal--dx age unknown Hypertension Paternal Family/Other Diabetes Maternal Aunt Grandfather Hypertension Paternal Denies family history of Ovarian cancer Clotting disorder Heart disease Hypercholesteremia Breast cancer Anesthesia complication Bleeding disorder Uterine cancer Thyroid disease Stroke Social History Smoking and tobacco/nicotine status: current every day tobacco/nicotine user Female Reproductive History : 2 Para: 0 Data Anesthesia 10/05/23 06:45 Short CBC 10/05/23 Range/Units 06:45 WBC 16.89 H (3.29-11.43) 10^3/uL Hgb 10.70 L (11.27-16.99) g/dL Hct 32.5 L (36-47) % MCV 86.7 (85-98) fl Plt Count 268 (157-399) 10^3/cmm Neut % (Auto) 68.8 % Neut # (Auto) 11.61 H (1.8-7.7) 10^3/uL Blood Bank 10/05/23 06:45 Blood Type A Positive Rho(D) Type Rh positive Antibody Screen Negative Cardiac Studies: 2 No Data to Display
[2023-10-05] MEDS: BUPIVACAINE LIPOSOME/PF 266 MG, BUPivacaine 0.25% 30 ML in sodium chloride 0.9% 50 ML 100 MG INFILTRATI (09:54)
--- NOTE | 2023-10-05 10:21 | PM.OP ---
Operative Report Date of procedure: October 05, 2023 Pre-op diagnosis: Term IUGR EFW 5% Previous delivery Post-op diagnosis: Term Previous delivery Procedure done: Repeat low-transverse delivery Surgeon: Jasno Hassan MD Estimated blood loss (mL): 500 Complications: None Procedure: After assuring informed consent, the patient was taken to the operating room and anesthesia was initiated. She was placed in the dorsal supine position with a left lateral tilt. The abdomen was prepped and draped in the usual sterile manner. A time-out procedure was performed. Preop antibiotics was administered. A Pfannenstiel skin incision was made with the scalpel and carried through to the underlying layer of fascia with the Bovie. The fascia was nicked in the midline and the incision extended laterally with the Katz scissors. The superior aspect of the fascial incision was then grasped with Duy clamps and elevated and the underlying rectus muscle dissected off bluntly and sharp with katz scissors dense adhesions. Attention was then turned to the inferior aspect of the incision which, in similar fashion, was grasped and tented up with Duy clamps and the rectus muscle dissected bluntly. The rectus muscles were then in the midline and the peritoneum identified, tented up and entered sharply with Metzenbaum scissors. The peritoneal incision was then extended superiorly and inferiorly with good visualization of the bladder. The Maximilian O retractor was then inserted and the vesicouterine peritoneum identified, grasped with pickups and entered sharply with Metzenbaum scissors. This incision was then extended laterally and the bladder flap created digitally. The uterus incised in a low transverse fashion with the scalpel. The uterine incision was then extended with the bandage scissors. The was then delivered in the cephalic presentation atraumatically vacuum assisted. The nose and the mouth were suctioned with bulb and the cord clamped and cut. The cord was normal and had three vessels. Amniotic fluid was clear. The placenta was then removed manually and the uterus exteriorized and cleared of all clots and debris. The uterine incision was repaired with 0 Vicryl in a running-locked fashion. A second layer of the same suture was used to obtain excellent hemostasis. The gutters were cleared of all clots. The uterus was then returned to the abdomen. The rectus muscles were approximated with 3-0 chromic gut. The ON-Q pain management system placed. The fascia was reapproximated with 0 Vicryl in an interrupted running fashion. The skin was closed with Insorb?s subcuticular absorbable shreya. The patient tolerated the procedure well. The sponge, lap and needle counts were correct times three.
--- NOTE | 2023-10-05 10:55 | ANE.PACU2 ---
Inpatient post-anesthesia follow up: Airway intact: Yes Vital signs: Temperature Pulse Rate 86 Respiratory Rate 18 Blood Pressure 120/62 Pulse Oximetry 99 Oxygen Delivery Me thod Room Air Oxygen Flow Rate Fraction of Inspir ed Oxygen Hydration adequate: Yes Nausea and vomiting: No Pain level: 1 Mental status: Baseline
[2023-10-05] MEDS: hyDROXYzine 25 mg Capsule 50 MG PO (11:25)
[2023-10-05] MEDS: dextrose 5%-lactated ringers 1,000 ML 125 ML IV (13:07)
[2023-10-05] MEDS: HYDROcodone-acetaminophen 5-325 mg Tablet PO ×2 (14:11→19:09)
[2023-10-05] MEDS: ketorolac 30 mg/mL INJ IVP ×2 (16:09→22:50)
[2023-10-06] VITALS (7 sets, daily range): BP systolic 95–118; BP diastolic 58–61; PULSE 65–102; RESP 16–18; TEMP 36.6–37
[2023-10-06 00:29] LABS: Hematocrit 29.4 % (36-47); Mean Corpuscular HGB Conc 33.7 g/dL (30-55); Mean Corpuscular Hemoglobin 28.9 pg (27-33); Mean Platelet Volume 10.9 fL (7.4-10.4); Platelet Count 275 10^3/cmm (157-399); Red Blood Count 3.42 10^6/uL (3.85-5.65); Red Cell Distribution Width 12.9 % (12.1-15.1); White Blood Count 14.14 10^3/uL (3.29-11.43)
[2023-10-06] MEDS: ketorolac 30 mg/mL INJ IVP (03:16)
[2023-10-06] MEDS: HYDROcodone-acetaminophen 5-325 mg Tablet PO ×3 (07:43→19:20)
[2023-10-06] MEDS: docusate sodium 100 mg Capsule PO (08:49)
[2023-10-06] MEDS: lanolin oint 7 gm 1 APPLIC TOPICAL (09:25)
--- NOTE | 2023-10-06 12:22 | P.PN_ITS ---
Subjective 2 Subjective: Mrs. Francois 23-year-old female G2, P2 is status post repeat delivery day 1. Vitals/I&O/Wt Last Vital Signs Temp 98.1 F 10/06/23 08:52 Pulse 71 10/06/23 08:53 Resp 16 10/06/23 03:18 BP 118/59 10/06/23 08:53 Pulse Ox 99 10/05/23 10:55 O2 Del Method Room Air 10/05/23 10:55 10/05/23 10/06/23 10/06/23 22:59 06:59 14:59 Intake Total 1000 / 3400 Output Total 1050 / 1950 850 / 2800 800 / 800 Balance -50 / 1450 -850 / 600 -800 / -800 Weight last 48 hrs Weight 64.41 kg Physical Exam 2 Narrative: GA; alert and oriented x 3 HEENT: normal Breasts: engorged Nipples - skin intact Lungs; clear to auscultation Heart: regular rhythm, no murmurs. Abd: Appropriately tender. BS+. Uterine fundus below umbilicus. No Fundal Tenderness, minimal tenderness, incision clean and dry, no redness, pain or edema Perineum: normal lochia. Extremities: no edema, no cyanosis, no tenderness. Urinary Catheter Management: Wiley Latex Free: Cath Placed During This Visit: yes, but has since been removed by the nurse Reason for Continuing Indwelling Catheter: Decision to DC Catheter Urinary Catheter Date of Insertion: 10/05/23 Urinary Catheter Time of Insertion: 09:15 Date Urinary Catheter Removed: 10/06/23 Time Urinary Catheter Discontinued: 03:40 Data 10/05/23 22:56 A&P Assessment and plan (1) delivery, delivered, current hospitalization: Mrs. Francois 23-year-old female G2, P2 with status post repeat delivery postoperative day 1. She is afebrile hemodynamically stable. Tolerating diet well. Ambulating without difficulty. Plan Continue postop observation. Attestations 2 Medical Necessity Statement*: In my professional opinion per admitting diagnosis Coding Level of Care Code Acute Code for Chg Fwd Diagnoses delivery, delivered, current hospitalization O82
[2023-10-06] MEDS: ibuprofen 800 mg tablet PO ×2 (16:21→21:00)
[2023-10-07] MEDS: HYDROcodone-acetaminophen 5-325 mg Tablet PO ×2 (01:49→12:33)
[2023-10-07 04:00] VITALS: BP 102/64; PULSE 79; RESP 18; TEMP 36.8
[2023-10-07 10:28] VITALS: BP 114/74; PULSE 96
[2023-10-07] MEDS: PRENATAL VIT NO.130/IRON/FOLIC 1 EACH TABLET PO (10:28)
[2023-10-07] MEDS: ferrous sulfate EC 325 mg Tablet PO (10:28)
[2023-10-07] MEDS: docusate sodium 100 mg Capsule PO (10:29)
[2023-10-07] MEDS: ibuprofen 800 mg tablet PO (10:29)
--- NOTE | 2023-10-07 12:35 | PM.OBGYDC ---
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 Francois 23-year-old female with an estimated gestational age 40 weeks with a previous delivery. Admitted for repeat low-transverse delivery, delivery was performed without complications. Postop observation have been uneventful. She is afebrile and hemodynamically stable postoperative day 2. Tolerating diet well. Ambulating without difficulty. She was counseled regarding pelvic rest for 6 weeks (no sex, no tampons, no vaginal douches). Return to the emergency room if any fever, increased bleeding or pain. Information Peripartum Data: Delivery Method: Physical Exam Narrative: GA; alert and oriented x 3 HEENT: normal Breasts: engorged Nipples - skin intact Lungs; clear to auscultation Heart: regular rhythm, no murmurs. Abd: Appropriately tender. BS+. Uterine fundus below umbilicus. No Fundal Tenderness, minimal tenderness, incision clean and dry, no redness, pain or edema Perineum: normal lochia. Extremities: no edema, no cyanosis, no tenderness. Urinary Catheter Management: Wiley Latex Free: Cath Placed During This Visit: yes, but has since been removed by the nurse Reason for Continuing Indwelling Catheter: Decision to DC Catheter Urinary Catheter Date of Insertion: 10/05/23 Urinary Catheter Time of Insertion: 09:15 Date Urinary Catheter Removed: 10/06/23 Time Urinary Catheter Discontinued: 03:40 History History History 2 Term 1 0 Miscarriages/Ectopic 0 Living Children 1 Discharge Data Studies Completed and Pending Laboratory Results WBC 14.14 10^3/uL (3.29-11.43) H 10/05/23 22:56 RBC 3.42 10^6/uL (3.85-5.65) L 10/05/23 22:56 Hgb 9.90 g/dL (11.27-16.99) L 10/05/23 22:56 Hct 29.4 % (36-47) L 10/05/23 22:56 MCV 86.0 fl (85-98) 10/05/23 22:56 MCH 28.9 pg (27-33) 10/05/23 22:56 MCHC 33.7 g/dL (30-55) 10/05/23 22:56 RDW 12.9 % (12.1-15.1) 10/05/23 22:56 Plt Count 275 10^3/cmm (157-399) 10/05/23 22:56 MPV 10.9 fL (7.4-10.4) H 10/05/23 22:56 Neut % (Auto) 68.8 % 10/05/23 06:45 Lymph % (Auto) 18.5 % 10/05/23 06:45 [place] % (Auto) 9.7 % 10/05/23 06:45 Eos % (Auto) 0.1 % 10/05/23 06:45 Baso % (Auto) 0.3 % 10/05/23 06:45 Neut # (Auto) 11.61 10^3/uL (1.8-7.7) H 10/05/23 06:45 Lymph # (Auto) 3.1 10^3/uL (0.8-4.8) 10/05/23 06:45 [place] # (Auto) 1.6 10^3/uL (0.2-0.9) H 10/05/23 06:45 Eos # (Auto) 0.0 10^3/uL (0.0-0.8) 10/05/23 06:45 Baso # (Auto) 0.1 10^3/uL (0.0-0.1) 10/05/23 06:45 Nucleated RBC % (auto) 0 % 10/05/23 06:45 Nucleated RBCs # 0.0 /100WBC 10/05/23 06:45 Urine Opiates Screen Negative ng/mL (Negative) 10/05/23 08:00 Ur Barbiturates Screen Negative ng/mL (Negative) 10/05/23 08:00 Ur Phencyclidine Scrn Negative ng/mL (Negative) 10/05/23 08:00 Ur Amphetamines Screen Negative ng/mL (Negative) 10/05/23 08:00 U Benzodiazepines Scrn Negative ng/mL (Negative) 10/05/23 08:00 Urine Cocaine Screen Negative ng/mL (Negative) 10/05/23 08:00 U Marijuana (THC) Screen Negative ng/mL (Negative) 10/05/23 08:00 Blood Type A Positive 10/05/23 06:45 Rho(D) Type Rh positive 10/05/23 06:45 Antibody Screen Negative 10/05/23 06:45 Vitals Last Vital Signs Temp 98.3 F 10/07/23 04:00 Pulse 96 10/07/23 10:28 Resp 18 10/07/23 04:00 BP 114/74 10/07/23 10:28 Pulse Ox 99 10/05/23 10:55 O2 Del Method Room Air 10/05/23 10:55 Results Labs OB ([facility]): Obstetrics US 06/22/23 Blood Type A Positive 10/05/23 Antibody Screen Negative 10/05/23 Hct 29.4 % (36-47) L 10/05/23 Hgb 9.90 g/dL (11.27-16.99) L 10/05/23 Rho(D) Type Rh positive 10/05/23 Plt Count 275 10^3/cmm (157-399) 10/05/23 Hep Bs Antigen Non-reactive (Nonreactive) 03/18/23 Hepatitis C Antibody Non-reactive (Nonreactive) 03/18/23 Rubella IgG Antibody 52.8 IU/mL (0.0-10.0) H 03/18/23 RPR Nonreactive (Nonreactive) 03/18/23 HIV 1&2 Ab & HIV 1 Ag Non-reactive (Non-Reactiv) 03/18/23 C.trachomatis RNA (TMA) Not detected (NOT DETECTED) 04/16/23 N.gonorrhoeae RNA (TMA) Not detected (NOT DETECTED) 04/16/23 T. vaginalis Amp RNA Not detected (NOT DETECTED) 04/16/23 Chlamydia/GC Comment See note 04/16/23 Cystic Fibrosis Screen Negative 03/18/23 Glucose 1 Hr 50 gm 146 mg/dL (85-140) H 06/25/23 Gest Glucose Tolerance mg/dL 07/20/23 Ser , Semi-Qnt 37884.00 mIU/mL 03/01/23 HCG, Qual Positive (Negative) H 02/20/23 Urine Opiates Screen Negative ng/mL (Negative) 10/05/23 Ur Barbiturates Screen Negative ng/mL (Negative) 10/05/23 Ur Phencyclidine Scrn Negative ng/mL (Negative) 10/05/23 Ur Amphetamines Screen Negative ng/mL (Negative) 10/05/23 U Benzodiazepines Scrn Negative ng/mL (Negative) 10/05/23 Urine Cocaine Screen Negative ng/mL (Negative) 10/05/23 U Marijuana (THC) Screen Negative ng/mL (Negative) 10/05/23 Micro Urine Specimen 03/18/23 Discharge Plan Discharge Patient Disposition: Home Condition: Stable Prescriptions: New hydrocodone-acetaminophen 5-325 mg tablet 1 tab PO Q4H PRN (Reason: pain) Qty: 20 0RF acetaminophen 325 mg capsule 325 mg PO Q4H PRN (Reason: fever or pain) Qty: 60 0RF ferrous sulfate [Iron (ferrous sulfate)] 325 mg (65 mg iron) tablet 325 mg PO BID Qty: 60 0RF ibuprofen 800 mg tablet 800 mg PO TID PRN (Reason: pain) Qty: 60 0RF docusate sodium [Colace] 100 mg capsule 100 mg PO BID Qty: 60 0RF Continued Gummies 400 mcg-35 mg- 25 mg-5 mg tablet,chewable 1 tab PO DAILY Discharge Orders: Discharge Order (Routine); Ordered 10/07/23 Ordered By: Jason Hassan Referrals: Jason Hassan MD [Physician] - 10/19/23 11:15 am (Your [address] Hassan is November 25, 2023 at 1:30 p.m.) Discharge Diet: Usual diet Discharge Activity: Limit activity as instructed Patient Instructions: Depression (DC), Bleeding (DC), Preeclampsia and Eclampsia After Delivery (GEN), Hemorrhage (DC), OB [facility], OB Discharge Report, OB Food/Drug Interaction Guide, Opioid Safety, OB Home Care Activity Restrictions/Additional Instructions: 1. Please call [facility] on next working day to make your post-operative appointment in 2 weeks. 2. Please stay home until you come back to the clinic on first post-hospatilization check up. 3. Please follow instructions on your medications CAREFULLY. 4. If you have abdominal incision, do not cover it unless dressing is necessary because of drainage. OK to shower, but avoid bath. Leave steri-strips until they fall off. If they are still on one week after surgery, you may remove them. 5. If you had vaginal surgery or vaginal repair, Dr. Hassan may instruct you to take SITZ bath. 6. Yellow, blood tinged odorous vaginal discharge is usually normal after hysterectomy or vaginal surgeries. 7. No SEXUAL INTERCOURSE, tampons, or douches until you are completely released from the post-operative care. 8. Avoid constipation by eating right and maybe using some Metamucil or Milk of Magnesia. 9. All prescription refills are given during the working hours. Please do no wait till it runs out. Call the clinic at [phone] before your medication runs out. The clinic will get in touch with your doctor to prescribe medications if necessary. 10. Please remain within 40 mile radius from our hospital because emergencies do happen now and then during the post-operative period. 11. If you have stairs at home, take one step at a time slowly and minimize the number of trips. It helps to stay in one floor for the next few days. No lifting except what you can lift by one hand until you are released from the post-operative care. 12. Driving is discouraged until you are well healed. It may be 3-4 weeks before you feel strong enough to drive. You should be able to turn and look through the rear window without pain and you should be able to push the brake pedal very hard without pain before you drive. No fast rules, but SAFETY should be your primary concern. DO NOT drive if you are on sedating medications such as narcotics. 13. Call the clinic (during working hours) to make urgent appointment or go to the Emergency room, if any of the following occurs: i. Vaginal bleeding becomes heavy, more than a period. ii. Incision becomes red and sore, or drains pus. iii. Your TEMPERATURE is over 100.4F or you have chill. iv. IV site becomes red and swollen (a little ``knot?? is usually OK) v. Persistent nausea and vomiting vi. Persistent constipation or diarrhea vii. Rash or allergic reaction to medications. Discharge Attestations STONEWORK TRACER Time Spent in Discharge Care*: greater than 30 min Coding Level of Care Code Acute Code for Chg Fwd Diagnoses delivery, delivered, current hospitalization O82
[2023-10-07 14:15] VITALS: BP 98/54; PULSE 85; RESP 18; TEMP 36.5
[2023-10-07 14:20] VITALS: TEMP 36.4
[2023-10-07 14:21] VITALS: BP 98/54; PULSE 85
== END 2023-10-07 14:30 | disposition home or self-care (01) | DRG 788 ==
PROVIDERS: Admitting Provider Obstetrics & Gynecology; PCP Family Medicine; Visit Provider Obstetrics & Gynecology
PROC: 10D00Z1 Extraction of Products of Conception, Low, Open Approach (ICD-10-PCS; CPT 59514; principal; 2023-10-05 08:25)
DX: O34.211 Maternal care for low transverse scar from previous cesarean delivery (principal); N85.8 Other specified noninflammatory disorders of uterus; O99.334 Smoking (tobacco) complicating childbirth; F17.290 Nicotine dependence, other tobacco product, uncomplicated; Z3A.40 40 weeks gestation of pregnancy; Z37.0 Single live birth
CPT/HCPCS: 36415; 51702; 59025; 59409; 80306; 85025; 85027; 86850; 86900; 96374; 96376; C9290; J0690; J1885; J2274; J2371; J2405; J2765; J3010; J3490; J7120; J7121

== ENCOUNTER → 2023-10-25 12:45 | Outpatient (BNVA) | payer MEDICAID, SELFPAY | PROVIDERS: PCP Family Medicine; Visit Provider Nurse Practitioner | DX: J02.9 Acute pharyngitis, unspecified (principal) | CPT/HCPCS: 87880 ==

== ENCOUNTER → 2023-11-05 13:38 | Outpatient (BNVA) | payer MEDICAID, SELFPAY | PROVIDERS: PCP Family Medicine; Visit Provider Nurse Practitioner Women's Health | DX: Z30.9 Encounter for contraceptive management, unspecified (principal) | CPT/HCPCS: 81025 ==

== ENCOUNTER → 2023-12-02 10:33 | Outpatient (BNVA) | payer MEDICAID, SELFPAY | PROVIDERS: PCP Family Medicine; Visit Provider Obstetrics & Gynecology | DX: Z39.2 Encounter for routine postpartum follow-up (principal) | CPT/HCPCS: 85025 ==

== ENCOUNTER 2023-12-03 14:50 | Outpatient (CLI) | payer MEDICAID, SELFPAY ==
--- NOTE | 2023-12-03 15:23 | XR_ITS ---
WS: [id number] Right hip, AP and frog-leg views, 12/03/2023 Clinical Data: RT HIP PAIN Comparison: Right hip, 11/21/2018 Findings: No fractures or dislocations are seen. The right hip joint shows no erosion, sclerosis, narrowing, cy st formation or fragmentation of the right femoral head. The soft tissues are not remarkable. The adj acent pelvis is normal. XR/XR hip RT 2-3V wo/w pel* [id number] Impression: Negative right hip. Tonnis classification: grade 0: normal radiographs
== END 2023-12-03 14:51 | disposition home or self-care (01) ==
LOC: RAD 14:53
PROVIDERS: PCP Family Medicine; Visit Provider Family Medicine
DX: M25.551 Pain in right hip (principal)
CPT/HCPCS: 73502

== ENCOUNTER 2024-01-17 03:14 | Emergency (ER) | payer MEDICAID, SELFPAY ==
[2024-01-17] VITALS (9 sets, daily range): BP systolic 117; BP diastolic 87; PULSE 88–120; RESP 16–26; TEMP 36.3; O2SAT 95–100; BMI 18.8
[2024-01-17 03:42] LABS: Basophils # 0.1 10^3/uL (0.0-0.1); Basophils % 0.2 %; Eosinophils % 0.1 %; Lymphocytes # 1.7 10^3/uL (0.8-4.8); Lymphocytes % 6.4 %; Mean Corpuscular HGB Conc 33.5 g/dL (30-55); Mean Corpuscular Hemoglobin 28.5 pg (27-33); Mean Corpuscular Volume 85.2 fl (85-98); Mean Platelet Volume 9.8 fL (7.4-10.4); Monocytes # 1.3 10^3/uL (0.2-0.9); Monocytes % 4.7 %; Neutrophils # 23.51 10^3/uL (1.8-7.7); Neutrophils % 88.1 %; Nucleated Red Blood Cells % 0 %; Platelet Count 484 10^3/cmm (157-399); Red Blood Count 5.75 10^6/uL (3.85-5.65); Red Cell Distribution Width 12.6 % (12.1-15.1); White Blood Count 26.71 10^3/uL (3.29-11.43)
[2024-01-17] MEDS: haloperidol inj 5 mg/mL INJ 1 mL 3 MG IVP (03:44)
[2024-01-17] MEDS: sodium chloride 0.9% 1,000 ML 999 ML IV ×2 (03:44→04:53)
[2024-01-17] MEDS: LORazepam 2 mg/mL INJ 1 mL 1 MG IVP (03:45)
[2024-01-17 03:50] LABS: HCG, Serum Qual Negative (Negative)
[2024-01-17 03:57] LABS: Alanine Aminotransferase 34 U/L (0-33); Alkaline Phosphatase 119 U/L (35-105); Anion Gap 20.9 (5-19); Aspartate Amino Transferase 24 U/L (0-32); Blood Urea Nitrogen 17 mg/dL (6-20); Calcium 9.7 mg/dL (8.5-10.5); Carbon Dioxide 21 mmol/L (22-29); Chloride 103 mmol/L (98-107); Creatine Phosphokinase 88 U/L (26-192); Creatinine Clr Calc Pharmacy 105.9225; Glomerular Filtration Rate 105.6 mL/min (90-130); Glucose 139 mg/dL (65-115); Lipase 24 U/L (13-60); Osmolality Calculated 296 mOsm/kg (285-295); Potassium 3.9 mmol/L (3.5-5.1); Sodium 141 mmol/L (136-145); Total Bilirubin 0.7 mg/dL (0.15-1.2)
[2024-01-17 03:58] LABS: Lactic Sepsis W/Reflex 2.9 mmol/L (0.5-2.2)
--- NOTE | 2024-01-17 04:37 | ED_ITS ---
Documented by User: Husam Dueñas DO 01/18/24 20:32 HPI - Nausea/Vomiting/Diarrhea 2 General: Chief complaint: Nausea/Vomiting/Diarrhea Stated complaint: right side weakness confused slurred speech Time Seen by Provider: 01/17/24 03:29 History of Present Illness: 23-year-old female who awoke from sleep this morning vomiting. She states that she vomited 10 times, and has nothing left in her stomach. She has had some loose stool as well. No fever. On the way here, she began to get confused, have some paresthesia mainly to the right side of her body, had some slurred speech. This seems resolved or improved at this point. Related Data Home Medications Medication Instructions Recorded Confirmed naproxen 500 mg tablet (Naprosyn) 500 mg PO Q12H 01/17/24 01/17/24 Previous Rx's Medication Instructions Recorded ondansetron 4 mg disintegrating 4 mg PO Q6H PRN nausea and 01/17/24 tablet vomiting #14 tabs Allergies Allergy/AdvReac Type Severity Reaction Status Date / Time latex Allergy ALGY-Hives Verified 01/17/24 03:29 loratadine [From Claritin] Allergy hives Verified 01/17/24 03:29 [facility] ED 2 PFSH: Medical History Migraines No pertinent past medical history neghx: htn,dm,thyroid,dvt/pe PCP: Surgical History History of section (~10/05/23) Repeat low-transverse section performed by Dr. Hassan at [facility] H/O section 11/06/2021: primary low transverse delivery performed by Dr. Hassan at [facility]. Family History Grandmother Colon cancer Maternal--dx age unknown Hypertension Paternal Family/Other Diabetes Maternal Aunt Grandfather Hypertension Paternal Denies family history of Ovarian cancer Clotting disorder Heart disease Hypercholesteremia Breast cancer Anesthesia complication Bleeding disorder Uterine cancer Thyroid disease Stroke Social History Smoking and tobacco/nicotine status: unknown if used tobacco/nicotine Female Reproductive History: Para: 0 Physical Exam 2 Const: GENERAL APPEARANCE: cooperative, anxious and ill appearing (Mildly); not frail appearing HENMT: COMMON NORMALS: normocephalic, atraumatic and Normal external nose present HEAD & SCALP: normocephalic and atraumatic FACE & SINUS: normal facial exam and face symmetric NOSE: Normal external nose present Eye: COMMON NORMALS: Equal, round and reactive pupils present and EOMs intact bilaterally PUPIL: Yes Equal, round and reactive pupils present Neck/C-Spine: GENERAL: Yes trachea midline Chest: CHEST: Yes Symmetrical chest wall rise Resp: COMMON NORMALS: normal respiratory effort, No retractions, No use of accessory muscles and clear to auscultation bilaterally AUSCULTATION: clear to auscultation bilaterally Cardio: COMMON NORMALS: regular rate and regular rhythm RATE: regular rate RHYTHM: regular rhythm GI: COMMON NORMALS: Soft to palpation PALPATION: Yes Soft to palpation, Yes Tenderness to palpation present (GI) (Epigastric) and No Guarding due to palpation present (GI) Extremity: COMMON NORMALS: no pedal edema Neuro: HOWARD COMA SCALE: document GCS findings [place] coma scale eye opening: Spontaneous [place] coma scale verbal response: Orientated [place] coma scale motor response: Obey commands [place] coma scale total score: 15 S PEECH: speech normal SENSORY EXAM: Yes extremities (intact) Psych: COMMON NORMALS: speech normal SPEECH: Yes normal speech Skin: COMMON NORMALS: no rashes or lesions noted GENERAL SKIN EXAM: no rashes or lesions noted Course 2 Vital Signs: Vital signs: Vital Signs Temperature 97.3 F L 01/17/24 03:25 Pulse Rate 88 01/17/24 06:00 Respiratory Rate 18 01/17/24 06:00 Blood Pressure 117/87 01/17/24 06:00 Pulse Oximetry 98 01/17/24 08:42 Oxygen Delivery Me thod Room Air 01/17/24 06:00 MDM - Nausea/Vomiting/Diarrhea Medical Decision Making She is tachycardic. She is very anxious. White blood cell count is 27, but CRP is 3. Minimal left shift. Lipase is 24. Liver enzymes are normal. Alkaline phosphatase is mildly elevated at 119. Lactic acid mild elevation at 2.9. Attempt was made to straight cath the patient for urine, but her bladder seem dry. She is getting a 2 L bolus. Will reattempt at that point. Patient is at 2 L bolus. She is awake and talking. She has now had 4-5 episodes of diarrhea here. She has a significant leukocytosis with lactic acidosis that is mild. Her urinalysis is negative. Urine drug screen is positive for marijuana. She still having abdominal tenderness. Will elect to image with CT scan. If given no acute intervenable findings, will allow home on antiemetics. Lab Data 01/17/24 03:28 01/17/24 03:28 Radiology Impressions Abdomen/Pelvis CT 01/17/24 06:20 IMPRESSION: 1. Air-fluid levels involving minimally distended loops of large and small bowel. This is a nonspecific finding but can be seen with an ileus or enterocolitis. 2. Mild fatty infiltration of the liver. 3. Small amount of air within the urinary bladder. Recommend clinical correlation. Laboratory Results WBC 26.71 10^3/uL (3.29-11.43) H 01/17/24 03:28 RBC 5.75 10^6/uL (3.85-5.65) H 01/17/24 03:28 Hgb 16.40 g/dL (11.27-16.99) 01/17/24 03:28 Hct 49.0 % (36-47) H 01/17/24 03:28 MCV 85.2 fl (85-98) 01/17/24 03:28 MCH 28.5 pg (27-33) 01/17/24 03:28 MCHC 33.5 g/dL (30-55) 01/17/24 03:28 RDW 12.6 % (12.1-15.1) 01/17/24 03:28 Plt Count 484 10^3/cmm (157-399) H 01/17/24 03:28 MPV 9.8 fL (7.4-10.4) 01/17/24 03:28 Neut % (Auto) 88.1 % 01/17/24 03:28 Lymph % (Auto) 6.4 % 01/17/24 03:28 Glynn % (Auto) 4.7 % 01/17/24 03:28 Eos % (Auto) 0.1 % 01/17/24 03:28 Baso % (Auto) 0.2 % 01/17/24 03:28 Neut # (Auto) 23.51 10^3/uL (1.8-7.7) H 01/17/24 03:28 Lymph # (Auto) 1.7 10^3/uL (0.8-4.8) 01/17/24 03:28 Glynn # (Auto) 1.3 10^3/uL (0.2-0.9) H 01/17/24 03:28 Eos # (Auto) 0.0 10^3/uL (0.0-0.8) 01/17/24 03:28 Baso # (Auto) 0.1 10^3/uL (0.0-0.1) 01/17/24 03:28 Nucleated RBC % (auto) 0 % 01/17/24 03:28 Nucleated RBCs # 0.0 /100WBC 01/17/24 03:28 Sodium 141 mmol/L (136-145) 01/17/24 03:28 Potassium 3.9 mmol/L (3.5-5.1) 01/17/24 03:28 Chloride 103 mmol/L (98-107) 01/17/24 03:28 Carbon Dioxide 21 mmol/L (22-29) L 01/17/24 03:28 Anion Gap 20.9 (5-19) H 01/17/24 03:28 BUN 17 mg/dL (6-20) 01/17/24 03:28 Creatinine 0.7 mg/dL (0.5-0.9) 01/17/24 03:28 GFR Calculation 105.6 mL/min (90-130) 01/17/24 03:28 Glucose 139 mg/dL (65-115) H 01/17/24 03:28 Calculated Osmolality 296 mOsm/kg (285-295) H 01/17/24 03:28 Lactic Acid 2.9 mmol/L (0.5-2.2) H 01/17/24 03:28 Lactic Acid (Sepsis) 1.1 mmol/L (0.5-2.2) 01/17/24 06:19 Calcium 9.7 mg/dL (8.5-10.5) 01/17/24 03:28 Total Bilirubin 0.7 mg/dL (0.15-1.2) 01/17/24 03:28 AST 24 U/L (0-32) 01/17/24 03:28 ALT 34 U/L (0-33) H 01/17/24 03:28 Alkaline Phosphatase 119 U/L (35-105) H 01/17/24 03:28 Creatine Kinase 88 U/L (26-192) 01/17/24 03:28 C-Reactive Protein 3.0 mg/L (0.0-4.9) 01/17/24 03:28 Total Protein 8.0 g/dL (6.6-8.7) 01/17/24 03:28 Albumin 5.0 g/dL (3.5-5.2) 01/17/24 03:28 Globulin 3.0 g/dL (1.3-4.6) 01/17/24 03:28 Lipase 24 U/L (13-60) 01/17/24 03:28 HCG, Qual Negative (Negative) 01/17/24 03:28 Urine Color Yellow (Yellow) 01/17/24 05:53 Urine Appearance Clear (CLEAR) 01/17/24 05:53 Urine pH 6.0 (5-7) 01/17/24 05:53 Ur Specific [place] 1.015 (1.005-1.030) 01/17/24 05:53 Urine Protein Negative (Negative) 01/17/24 05:53 Urine Glucose (UA) Negative (Normal) 01/17/24 05:53 Urine Ketones Trace (Negative) 01/17/24 05:53 Urine Blood Negative (Negative) 01/17/24 05:53 Urine Nitrate Negative (Negative) 01/17/24 05:53 Urine Bilirubin Negative (Negative) 01/17/24 05:53 Urine Urobilinogen 0.2 mg/dL (Negative) 01/17/24 05:53 Ur Leukocyte Esterase Negative (Negative) 01/17/24 05:53 Urine RBC 0-2 /hpf (0-2) 01/17/24 05:53 Urine WBC 0-5 /hpf (0-5) 01/17/24 05:53 Ur Squamous Epith Cells 0-5 /hpf (0-5) 01/17/24 05:53 Amorphous Sediment Not Reportable 01/17/24 05:53 Urine Bacteria None seen /hpf (NONE) 01/17/24 05:53 Hyaline Casts 2.87 /lpf 01/17/24 05:53 Urine Opiates Screen Negative ng/mL (Negative) 01/17/24 05:53 Ur Barbiturates Screen Negative ng/mL (Negative) 01/17/24 05:53 Ur Phencyclidine Scrn Negative ng/mL (Negative) 01/17/24 05:53 Ur Amphetamines Screen Negative ng/mL (Negative) 01/17/24 05:53 U Benzodiazepines Scrn Positive ng/mL (Negative) H 01/17/24 05:53 Urine Cocaine Screen Negative ng/mL (Negative) 01/17/24 05:53 U Marijuana (THC) Screen Positive ng/mL (Negative) H 01/17/24 05:53 Discharge Plan Discharge Patient Disposition: Home Clinical Impression: Gastroenteritis Condition: Stable Prescriptions: New ondansetron 4 mg tablet,disintegrating 4 mg PO Q6H PRN (Reason: nausea and vomiting) Qty: 14 0RF No Action naproxen [Naprosyn] 500 mg tablet 500 mg PO Q12H Discharge Orders: Discharge ED (Routine); Ordered 01/17/24 Ordered By: Misbah Diaz Referrals: Jagjit Flores MD [Primary Care Provider] - 1-3 days Patient Instructions: Gastroenteritis (ED), Opioid Safety, Pain Management Activity Restrictions/Additional Instructions: Follow a liquid diet for the next 24 hours. Take nausea medication prescribed every 4 hours while awake scheduled whether you feel you needed or not, then you may take it as needed following that. Return for worsening pain, fever, other concerning symptoms. Stay hydrated. Stand Alone Forms: Work/School Release Sign Out Sign Out Data: Patient Sign Out occurred on 01/17/24 at 06:55. Patient's care was discussed, and care was transferred from Husam Dueñas DO to Misbah Diaz DO. Coding Level of Care Code ED Cerner Analyst for Chg Fwd Documented by User: Misbah Diaz DO 01/18/24 06:09 HPI - Nausea/Vomiting/Diarrhea 2 General: Chief complaint: Nausea/Vomiting/Diarrhea Stated complaint: right side weakness confused slurred speech Time Seen by Provider: 01/17/24 03:29 Related Data Home Medications Medication Instructions Recorded Confirmed naproxen 500 mg tablet (Naprosyn) 500 mg PO Q12H 01/17/24 01/17/24 Previous Rx's Medication Instructions Recorded ondansetron 4 mg disintegrating 4 mg PO Q6H PRN nausea and 01/17/24 tablet vomiting #14 tabs Allergies Allergy/AdvReac Type Severity Reaction Status Date / Time latex Allergy ALGY-Hives Verified 01/17/24 03:29 loratadine [From Claritin] Allergy hives Verified 01/17/24 03:29 [facility] ED 2 PFSH: Medical History Migraines No pertinent past medical history neghx: htn,dm,thyroid,dvt/pe PCP: Surgical History History of section (~10/05/23) Repeat low-transverse section performed by Dr. Hassan at [facility] H/O section 11/06/2021: primary low transverse delivery performed by Dr. Hassan at [facility]. Family History Grandmother Colon cancer Maternal--dx age unknown Hypertension Paternal Family/Other Diabetes Maternal Aunt Grandfather Hypertension Paternal Denies family history of Ovarian cancer Clotting disorder Heart disease Hypercholesteremia Breast cancer Anesthesia complication Bleeding disorder Uterine cancer Thyroid disease Stroke Social History Smoking and tobacco/nicotine status: unknown if used tobacco/nicotine Physical Exam 2 Neuro: HOWARD COMA SCALE: document GCS findings [place] coma scale total score: 15 Course 2 Vital Signs: Vital signs: Vital Signs Temperature 97.3 F L 01/17/24 03:25 Pulse Rate 88 01/17/24 06:00 Respiratory Rate 18 01/17/24 06:00 Blood Pressure 117/87 01/17/24 06:00 Pulse Oximetry 98 01/17/24 08:42 Oxygen Delivery Me thod Room Air 01/17/24 06:00 MDM - Nausea/Vomiting/Diarrhea Medical Decision Making She is tachycardic. She is very anxious. White blood cell count is 27, but CRP is 3. Minimal left shift. Lipase is 24. Liver enzymes are normal. Alkaline phosphatase is mildly elevated at 119. Lactic acid mild elevation at 2.9. Attempt was made to straight cath the patient for urine, but her bladder seem dry. She is getting a 2 L bolus. Will reattempt at that point. Patient is at 2 L bolus. She is awake and talking. She has now had 4-5 episodes of diarrhea here. She has a significant leukocytosis with lactic acidosis that is mild. Her urinalysis is negative. Urine drug screen is positive for marijuana. She still having abdominal tenderness. Will elect to image with CT scan. If given no acute intervenable findings, will allow home on antiemetics. Labs and imaging reviewed. She does have significant leukocytosis her symptoms have improved quite a bit from the medicines that Dr. Dueñas had given her earlier. CBC shows fluid-filled loops of bowel consistent with gastroenteritis. No other acute findings. Lateral thigh otherwise stable. The elevated white count is demargination from her vomiting. Will discharge patient home with antiemetics follow-up with primary care Medical Records I reviewed the patient's medical records. Lab Data I reviewed the patient's lab results. 01/17/24 03:28 01/17/24 03:28 Radiology Impressions Abdomen/Pelvis CT 01/17/24 06:20 IMPRESSION: 1. Air-fluid levels involving minimally distended loops of large and small bowel. This is a nonspecific finding but can be seen with an ileus or enterocolitis. 2. Mild fatty infiltration of the liver. 3. Small amount of air within the urinary bladder. Recommend clinical correlation. Laboratory Results WBC 26.71 10^3/uL (3.29-11.43) H 01/17/24 03:28 RBC 5.75 10^6/uL (3.85-5.65) H 01/17/24 03:28 Hgb 16.40 g/dL (11.27-16.99) 01/17/24 03:28 Hct 49.0 % (36-47) H 01/17/24 03:28 MCV 85.2 fl (85-98) 01/17/24 03:28 MCH 28.5 pg (27-33) 01/17/24 03:28 MCHC 33.5 g/dL (30-55) 01/17/24 03:28 RDW 12.6 % (12.1-15.1) 01/17/24 03:28 Plt Count 484 10^3/cmm (157-399) H 01/17/24 03:28 MPV 9.8 fL (7.4-10.4) 01/17/24 03:28 Neut % (Auto) 88.1 % 01/17/24 03:28 Lymph % (Auto) 6.4 % 01/17/24 03:28 Glynn % (Auto) 4.7 % 01/17/24 03:28 Eos % (Auto) 0.1 % 01/17/24 03:28 Baso % (Auto) 0.2 % 01/17/24 03:28 Neut # (Auto) 23.51 10^3/uL (1.8-7.7) H 01/17/24 03:28 Lymph # (Auto) 1.7 10^3/uL (0.8-4.8) 01/17/24 03:28 Glynn # (Auto) 1.3 10^3/uL (0.2-0.9) H 01/17/24 03:28 Eos # (Auto) 0.0 10^3/uL (0.0-0.8) 01/17/24 03:28 Baso # (Auto) 0.1 10^3/uL (0.0-0.1) 01/17/24 03:28 Nucleated RBC % (auto) 0 % 01/17/24 03:28 Nucleated RBCs # 0.0 /100WBC 01/17/24 03:28 Sodium 141 mmol/L (136-145) 01/17/24 03:28 Potassium 3.9 mmol/L (3.5-5.1) 01/17/24 03:28 Chloride 103 mmol/L (98-107) 01/17/24 03:28 Carbon Dioxide 21 mmol/L (22-29) L 01/17/24 03:28 Anion Gap 20.9 (5-19) H 01/17/24 03:28 BUN 17 mg/dL (6-20) 01/17/24 03:28 Creatinine 0.7 mg/dL (0.5-0.9) 01/17/24 03:28 GFR Calculation 105.6 mL/min (90-130) 01/17/24 03:28 Glucose 139 mg/dL (65-115) H 01/17/24 03:28 Calculated Osmolality 296 mOsm/kg (285-295) H 01/17/24 03:28 Lactic Acid 2.9 mmol/L (0.5-2.2) H 01/17/24 03:28 Lactic Acid (Sepsis) 1.1 mmol/L (0.5-2.2) 01/17/24 06:19 Calcium 9.7 mg/dL (8.5-10.5) 01/17/24 03:28 Total Bilirubin 0.7 mg/dL (0.15-1.2) 01/17/24 03:28 AST 24 U/L (0-32) 01/17/24 03:28 ALT 34 U/L (0-33) H 01/17/24 03:28 Alkaline Phosphatase 119 U/L (35-105) H 01/17/24 03:28 Creatine Kinase 88 U/L (26-192) 01/17/24 03:28 C-Reactive Protein 3.0 mg/L (0.0-4.9) 01/17/24 03:28 Total Protein 8.0 g/dL (6.6-8.7) 01/17/24 03:28 Albumin 5.0 g/dL (3.5-5.2) 01/17/24 03:28 Globulin 3.0 g/dL (1.3-4.6) 01/17/24 03:28 Lipase 24 U/L (13-60) 01/17/24 03:28 HCG, Qual Negative (Negative) 01/17/24 03:28 Urine Color Yellow (Yellow) 01/17/24 05:53 Urine Appearance Clear (CLEAR) 01/17/24 05:53 Urine pH 6.0 (5-7) 01/17/24 05:53 Ur Specific [place] 1.015 (1.005-1.030) 01/17/24 05:53 Urine Protein Negative (Negative) 01/17/24 05:53 Urine Glucose (UA) Negative (Normal) 01/17/24 05:53 Urine Ketones Trace (Negative) 01/17/24 05:53 Urine Blood Negative (Negative) 01/17/24 05:53 Urine Nitrate Negative (Negative) 01/17/24 05:53 Urine Bilirubin Negative (Negative) 01/17/24 05:53 Urine Urobilinogen 0.2 mg/dL (Negative) 01/17/24 05:53 Ur Leukocyte Esterase Negative (Negative) 01/17/24 05:53 Urine RBC 0-2 /hpf (0-2) 01/17/24 05:53 Urine WBC 0-5 /hpf (0-5) 01/17/24 05:53 Ur Squamous Epith Cells 0-5 /hpf (0-5) 01/17/24 05:53 Amorphous Sediment Not Reportable 01/17/24 05:53 Urine Bacteria None seen /hpf (NONE) 01/17/24 05:53 Hyaline Casts 2.87 /lpf 01/17/24 05:53 Urine Opiates Screen Negative ng/mL (Negative) 01/17/24 05:53 Ur Barbiturates Screen Negative ng/mL (Negative) 01/17/24 05:53 Ur Phencyclidine Scrn Negative ng/mL (Negative) 01/17/24 05:53 Ur Amphetamines Screen Negative ng/mL (Negative) 01/17/24 05:53 U Benzodiazepines Scrn Positive ng/mL (Negative) H 01/17/24 05:53 Urine Cocaine Screen Negative ng/mL (Negative) 01/17/24 05:53 U Marijuana (THC) Screen Positive ng/mL (Negative) H 01/17/24 05:53 All radiology interpretation(s) finalized by discharge Discharge Plan Discharge Patient Disposition: Home Clinical Impression: Gastroenteritis Condition: Stable Prescriptions: New ondansetron 4 mg tablet,disintegrating 4 mg PO Q6H PRN (Reason: nausea and vomiting) Qty: 14 0RF No Action naproxen [Naprosyn] 500 mg tablet 500 mg PO Q12H Discharge Orders: Discharge ED (Routine); Ordered 01/17/24 Ordered By: Misbah Diaz Referrals: Jagjit Flores MD [Primary Care Provider] - 1-3 days Patient Instructions: Gastroenteritis (ED), Opioid Safety, Pain Management Activity Restrictions/Additional Instructions: Follow a liquid diet for the next 24 hours. Take nausea medication prescribed every 4 hours while awake scheduled whether you feel you needed or not, then you may take it as needed following that. Return for worsening pain, fever, other concerning symptoms. Stay hydrated. Stand Alone Forms: Work/School Release Sign Out Sign Out Data: Patient Sign Out occurred on 01/17/24 at 06:55. Patient's care was discussed, and care was transferred from Husam Dueñas DO to Misbah Diaz DO. Coding Level of Care Code ED Cerner Analyst for Veronique Herbert
[2024-01-17 05:28] LABS: Reflex Lactate Order REFLEX LACTIC ORDERD
[2024-01-17 06:07] LABS: Bilirubin Urine Negative (Negative); Blood Urine Negative (Negative); Glucose Urine UA Negative (Normal); Ketones Urine Trace (Negative); Leukocyte Esterase Urine Negative (Negative); Nitrate Urine Negative (Negative); Protein Urine Negative (Negative); Specific Gravity, Urine 1.015 (1.005-1.030); Urine Appearance Clear (CLEAR); Urine Color Yellow (Yellow); Urobilinogen Urine 0.2 mg/dL (Negative)
[2024-01-17 06:10] LABS: Amphetamines Screen Urine Negative (Negative); Barbiturates Screen Urine Negative (Negative); Benzodiazepines Screen Urine Positive (Negative); Cocaine Screen Urine Negative (Negative); Opiate Screen Urine Negative (Negative); PCP Screen Urine Negative (Negative); THC Screen Urine Positive (Negative)
[2024-01-17 06:12] LABS: Add Urine Microscopic? YES; Bacteria Urine None Seen /hpf; Hyaline Casts Urine 2.87 /lpf; RBC Urine 0-2 /hpf (0-2); Squamous Epithelial Cell Urine 0-5 /hpf (0-5); WBC Urine 0-5 /hpf (0-5)
--- NOTE | 2024-01-17 06:20 | CTR_ITS ---
PROCEDURE INFORMATION: Exam: CT Abdomen And Pelvis With Contrast Exam date and time: 01/17/2024 6:34 AM Age: 23 years old Clinical indication: Abdominal pain; Generalized; Additional info: Abd pain, leukocytosis, lactic acidosis TECHNIQUE: Imaging protocol: Computed tomography of the abdomen and pelvis with contrast. Radiation optimization: All CT scans at this facility use at least one of these dose optimization techniques: automated exposure control; mA and/or kV adjustment per patient size (includes targeted exams where dose is matched to clinical indication); or iterative reconstruction. Contrast material: OMNIPAQUE 350; Contrast volume: 100 ml; Contrast route: INTRAVENOUS (IV); COMPARISON: CT abdomen pelvis w con* [id number] 04/30/2020 3:14 PM RADIATION DOSE METRICS: Total DLP (mGy-cm): 363.31 FINDINGS: Lungs: Lung bases are clear as visualized. Liver: There is diffuse fatty infiltration of the liver. The liver is otherwise normal. Gallbladder and biliary ducts: Normal. No calcified stones. No ductal dilation. Pancreas: Normal. No ductal dilation. Spleen: Normal. No splenomegaly. Adrenal glands: There is a small low-density nodule involving the right adrenal gland. The nodule measures 12 mm in size and is most compatible with an adenoma. The left adrenal gland is normal. Kidneys and ureters: Normal. No hydronephrosis. Stomach and bowel: There are air-fluid levels involving minimally distended loops of large and small bowel. This is a nonspecific finding but can be seen with an ileus or enterocolitis. No appreciable wall thickening is identified. Appendix: No evidence of appendicitis. Intraperitoneal space: Unremarkable. No free air. No significant fluid collection. Vasculature: Unremarkable. No abdominal aortic aneurysm. Lymph nodes: Unremarkable. No enlarged lymph nodes. Urinary bladder: There is a small amount of air within the urinary bladder. Recommend clinical correlation. Has patient been recently catheterized? Reproductive: Unremarkable as visualized. Bones/joints: Unremarkable. No acute fracture. Soft tissues: There is a small fat filled periumbilical hernia. CT/CT abdomen pelvis w con* [id number] IMPRESSION: 1. Air-fluid levels involving minimally distended loops of large and small bowel. This is a nonspecific finding but can be seen with an ileus or enterocolitis. 2. Mild fatty infiltration of the liver. 3. Small amount of air within the urinary bladder. Recommend clinical correlation.
[2024-01-17 06:29] LABS: UA Slide Review UA Slide Review Perf
[2024-01-17 06:45] LABS: Lactic Acid level (Lactate) 1.1 mmol/L (0.5-2.2)
[2024-01-17] MEDS: iohexol 350 mg/mL 500 mL Btl (per mL) IV (06:45)
== END 2024-01-17 08:25 | disposition home or self-care (01) ==
PROVIDERS: Emergency Medicine; Emergency Provider Family Medicine; PCP Family Medicine
DX: K52.9 Noninfective gastroenteritis and colitis, unspecified (principal)
CPT/HCPCS: 36415; 74177; 80053; 80306; 81001; 82550; 83605; 83690; 84703; 85025; 86140; 96361; 96374; 96375; 99285; J1630; J2060; J7030

== ENCOUNTER → 2024-05-08 11:53 | Outpatient (BNVA) | payer MEDICAID, SELFPAY | PROVIDERS: PCP Family Medicine; Visit Provider Emergency Medicine | DX: J02.9 Acute pharyngitis, unspecified (principal) | CPT/HCPCS: 87071; 87880 ==

== ENCOUNTER 2024-07-14 12:17 | Emergency (ER) | payer MEDICAID, SELFPAY ==
--- NOTE | 2024-07-14 12:18 | XRR_ITS ---
PROCEDURE INFORMATION: Exam: XR Chest Exam date and time: 07/14/2024 12:27 PM Age: 24 years old Clinical indication: Shortness of breath; Additional info: SOB TECHNIQUE: Imaging protocol: Radiologic exam of the chest. Views: 1 view. COMPARISON: CR XR chest 1V portable [id number] 12/31/2020 2:33 PM FINDINGS: Lungs: Unremarkable. No consolidation or mass. Pleural spaces: Unremarkable. No pleural effusion. No pneumothorax. Heart/Mediastinum: Unremarkable. No cardiomegaly. Bones/joints: Unremarkable. XR/XR chest 1V portable [id number] IMPRESSION: No acute findings.
[2024-07-14 12:26] VITALS: BP 114/79; PULSE 83; RESP 16; TEMP 36.9; O2SAT 98
--- NOTE | 2024-07-14 13:14 | ED_ITS ---
HPI - URI/Sore Throat 2 General: Chief Complaint: Upper Respiratory Infection Stated Complaint: Fever / Nausea / Cough Time Seen by Provider: 07/14/24 12:49 Source: patient Mode of arrival: ambulatory Limitations: no limitations History of Present Illness: Patient is a 24-year-old female here stating I do not feel good . She reports subjective fevers, chills, body aches. She states she has a productive cough and is having rib and back pain present only when she coughs. She states two of her kids have been sick as well. She states she is having some nausea and vomiting in the mornings-no chance of as she has a nexplanon. She reports chronic diarrhea. She attributes to this to her IBS. She is also complaining of abdominal pain. Feels like she has a sore throat. Is having some lower back pain. Her vital signs are stable upon arrival. MD elicited complaint: fever (subjective), cough and sore throat Onset (ago): day(s) Consistency: constant Severity: mild Description of mucous: clear Able to tolerate fluids by mouth: Yes Context: sick contacts Associated symptoms: Reports abdominal pain, chills, chest pain (rib pain when coughing), diarrhea, fever(s) (subjective) and vomiting; Deny ear or mastoid pain, headache(s), nasal congestion or sinus pain Treatments prior to arrival: none Related Data Home Medications ?Medication ?Instructions ?Recorded ?Confirmed naproxen 500 mg tablet (Naprosyn) 500 mg PO Q12H 01/1605/08/24 Previous Rx's ?Medication ?Instructions ?Recorded ondansetron 4 mg disintegrating 4 mg PO Q6H PRN nausea and 01/17/24 tablet vomiting #14 tabs albuterol sulfate 90 mcg/actuation 2 puff inhalation Q 6H PRN 05/08/24 aerosol inhaler shortness of breath or wheez ing #8.5 grams oseltamivir 75 mg capsule (Tamiflu) 75 mg PO BID 5 day s #10 caps 05/08/24 Allergies Allergy/AdvReac Type Severity Reaction Status Date / Time latex Allergy ALGY-Hives Verified 05/08/24 11:15 loratadine (From Claritin) Allergy hives Verified 05/08/24 11:15 Review of Systems 2 Const: Reports: fever(s) (subjective), chills and body aches; Denies: fatigue or malaise Eyes: Denies: change in vision, blurry vision, photophobia, floaters or seeing flashes ENMT: Reports: throat pain and hoarseness; Denies: oral sores, ear or mastoid pain, nasal discharge, nasal congestion or sinus pain Card: Reports: chest pain (rib pain when coughing); Denies: palpitations, irregular heart rhythm, edema, swelling of feet/ankles, lightheadedness, syncope, pre-syncope, dyspnea on exertion or orthopnea Resp: Reports: non-productive cough and chest congestion; Denies: dyspnea, wheezing or hemoptysis GI: Reports: abdominal pain, vomiting and diarrhea : Denies: flank pain, difficulty voiding, dysuria, urinary frequency, urinary urgency or urinary hesitancy Musc: Reports: back pain; Denies: neck pain, extremity pain, extremity swelling, joint pain, joint swelling or joint redness Skin/Breast: Denies: rash Neuro: Denies: headache(s), numbness in extremities, weakness in extremities, sensory changes or dizziness PFSH ED 2 PFSH: Medical History Migraines No pertinent past medical history neghx: htn,dm,thyroid,dvt/pe PCP: Surgical History History of section (~10/05/23) Repeat low-transverse section performed by Dr. Hassan at [facility] H/O section 11/06/2021: primary low transverse delivery performed by Dr. Hassan at [facility]. Family History Grandmother Colon cancer Maternal--dx age unknown Hypertension Paternal Family/Other Diabetes Maternal Aunt Grandfather Hypertension Paternal Denies family history of Ovarian cancer Clotting disorder Heart disease Hypercholesteremia Breast cancer Anesthesia complication Bleeding disorder Uterine cancer Thyroid disease Stroke Social History Smoking and tobacco/nicotine status: current every day tobacco/nicotine user Female Reproductive History: Para: 0 Physical Exam 2 Const: COMMON NORMALS: no acute distress, average body habitus, patient oriented x3, no limitations, healthy appearing, alert and well nourished G ENERAL APPEARANCE: cooperative ORIENTATION/CONSCIOUSNESS: Yes awake, Yes oriented to person, Yes oriented to place and Yes oriented to time HENMT: COMMON NORMALS: normocephalic, atraumatic, hearing grossly normal bilaterally, external ears normal, EAC's normal, TM's normal bilaterally, Normal external nose present, Normal nasal mucous membranes and turbinates present, moist oral mucous membranes and oropharynx normal HEAD & SCALP: normal to inspection, normocephalic and atraumatic FACE & SINUS: normal facial exam and sinuses nontender NOSE: Normal external nose present and Normal nasal mucous membranes and turbinates present EXTERNAL EAR: Yes external ears normal E XTERNAL AUDITORY CANAL: EAC's normal TYMPANIC MEMBRANE: TM's normal bilaterally MOUTH: Normal oral and palatal mucosa present, lip normal, tongue normal and Normal salivary glands and ducts present THROAT: posterior oropharynx normal, tonsils normal and uvula midline Eye: COMMON NORMALS: Equal, round and reactive pupils present, EOMs intact bilaterally and conjunctivae normal GENERAL EYE: appearance normal, both eyes and all related structures CONJUNCTIVA: Yes conjunctivae normal PUPIL: Yes Equal, round and reactive pupils present Neck/C-Spine: COMMON NORMALS: full ROM, no lymphadenopathy and no meningeal signs GENERAL: Yes normal visual inspection Chest: COMMONS NORMALS: normal inspection of the chest and normal palpation of entire chest wall Resp: COMMON NORMALS: normal respiratory effort and clear to auscultation bilaterally AUSCULTATION: clear to auscultation bilaterally Cardio: COMMON NORMALS: regular rate and regular rhythm (frequent PVCs) R ATE: regular rate RHYTHM: regular rhythm (frequent PVCs) GI: COMMON NORMALS: Normal to inspection, nondistended, normoactive bowel sounds present, Soft to palpation, No hepatosplenomegaly present and no masses INSPECTION: Yes normal to inspection AUSCULTATION: Yes normoactive bowel sounds PALPATION: Yes Soft to palpation, Yes Tenderness to palpation present (GI) (mild [id number]), No Guarding due to palpation present (GI), No Rigid due to palpation and Yes No hepatosplenomegaly present : COMMON NORMALS: Yes no CVA tenderness BLADDER/KIDNEY EXAM: Yes no CVA tenderness Back/Pelvis: COMMON NORMALS: no CVA tenderness, thoracic and lumbar spine normal to inspection and no thoracic nor lumbar tenderness Extremity: GENERAL: Yes normal exam except as noted Neuro: COMMON NORMALS: patient oriented x3, moves all extremities, no focal motor deficits and no sensory deficits noted SENSORIUM/ORIENTATION: Yes alert, Yes oriented to person, Yes oriented to place and Yes oriented to time MENINGEAL SIGNS: Yes no meningeal signs Skin: COMMON NORMALS: no rashes or lesions noted GENERAL SKIN EXAM: no rashes or lesions noted Course 2 Vital Signs: Vital signs: Vital Signs Temperature 98.4 F 07/14/24 12: Pulse Rate 83 07/14/24 12: Respiratory Rate 16 07/14/24 12:26 Blood Pressure 114/79 07/14/24 12:26 Pulse Oximetry 98 07/14/24 12: Oxygen Delivery Me thod Room Air 07/14/24 12:26 MDM - URI/Sore Throat Medical Decision Making Patient clinically appears in no acute distress. Her vital signs are stable. Physical exam overall is fairly benign. Abdominal examination is nonsurgical. Blood work overall is nonactionable. She does have some minor elevations to her LFTs. Some of these have been elevated previously. She does have a normal tbili and lipase. Could be transiently elevated due to suspected viral illness. Patient was made aware of this and will have primary care follow-up with these. CXR is unremarkable. She was swabbed for COVID/flu/RSV and these were negative. Differential Diagnosis Likely upper respiratory infection Medical Records I reviewed the patient's medical records. Lab Data I reviewed the patient's lab results. 07/14/24 13:41 07/14/24 13:41 Radiology Impressions Chest X-Ray 07/14/24 12:18 IMPRESSION: No acute findings. Laboratory Results WBC 6.96 10^3/uL (3.29-11.43) 07/14/24 13:41 RBC 4.79 10^6/uL (3.85-5.65) 07/14/24 13:41 Hgb 14.10 g/dL (11.27-16.99) 07/14/24 13:41 Hct 43.3 % (36-47) 07/14/24 13:41 MCV 90.4 fl (85-98) 07/14/24 13:41 MCH 29.4 pg (27-33) 07/14/24 13:41 MCHC 32.6 g/dL (30-55) 07/14/24 13:41 RDW 12.4 % (12.1-15.1) 07/14/24 13:41 Plt Count 280 10^3/cmm (157-399) 07/14/24 13:41 MPV 10.2 fL (7.4-10.4) 07/14/24 13:41 Neut % (Auto) 60.9 % 07/14/24 13:41 Lymph % (Auto) 23.4 % 07/14/24 13:41 [place] % (Auto) 12.1 % 07/14/24 13:41 Eos % (Auto) 2.6 % 07/14/24 13:41 Baso % (Auto) 0.4 % 07/14/24 13:41 Neut # (Auto) 4.24 10^3/uL (1.8-7.7) 07/14/24 13:41 Lymph # (Auto) 1.6 10^3/uL (0.8-4.8) 07/14/24 13:41 [place] # (Auto) 0.8 10^3/uL (0.2-0.9) 07/14/24 13:41 Eos # (Auto) 0.2 10^3/uL (0.0-0.8) 07/14/24 13:41 Baso # (Auto) 0.0 10^3/uL (0.0-0.1) 07/14/24 13:41 Nucleated RBC % (auto) 0 % 07/14/24 13:41 Nucleated RBCs # 0.0 /100WBC 07/14/24 13:41 Sodium 140 mmol/L (136-145) 07/14/24 13:41 Potassium 3.5 mmol/L (3.5-5.1) 07/14/24 13:41 Chloride 103 mmol/L (98-107) 07/14/24 13:41 Carbon Dioxide 24 mmol/L (22-29) 07/14/24 13:41 Anion Gap 16.5 (5-19) 07/14/24 13:41 BUN 10 mg/dL (6-20) 07/14/24 13:41 Creatinine 0.6 mg/dL (0.5-0.9) 07/14/24 13:41 GFR Calculation 125.0 mL/min (90-130) 07/14/24 13:41 Glucose 83 mg/dL (65-115) 07/14/24 13:41 Calculated Osmolality 288 mOsm/kg (285-295) 07/14/24 13:41 Calcium 8.9 mg/dL (8.5-10.5) 07/14/24 13:41 Total Bilirubin 0.3 mg/dL (0.15-1.2) 07/14/24 13:41 AST 67 U/L (0-32) H 07/14/24 13:41 ALT 124 U/L (0-33) H 07/14/24 13:41 Alkaline Phosphatase 113 U/L (35-105) H 07/14/24 13:41 Total Protein 7.1 g/dL (6.6-8.7) 07/14/24 13:41 Albumin 4.1 g/dL (3.5-5.2) 07/14/24 13:41 Globulin 3.0 g/dL (1.3-4.6) 07/14/24 13:41 Lipase 14 U/L (13-60) 07/14/24 13:41 HCG, Qual Negative (Negative) 07/14/24 13:33 Urine Color Dark yellow (Yellow) A 07/14/24 13:33 Urine Appearance Clear (CLEAR) 07/14/24 13:33 Urine pH 6.0 (5-7) 07/14/24 13:33 Ur Specific [place] 1.024 (1.005-1.030) 07/14/24 13:33 Urine Protein 1+ (Negative) A 07/14/24 13:33 Urine Glucose (UA) Negative (Normal) 07/14/24 13:33 Urine Ketones Trace (Negative) 07/14/24 13:33 Urine Blood Negative (Negative) 07/14/24 13:33 Urine Nitrate Negative (Negative) 07/14/24 13:33 Urine Bilirubin 1+ (Negative) H 07/14/24 13:33 Urine Urobilinogen 1.0 mg/dL (Negative) 07/14/24 13:33 Ur Leukocyte Esterase Negative (Negative) 07/14/24 13:33 Urine RBC 0-2 /hpf (0-2) 07/14/24 13:33 Urine WBC 0-5 /hpf (0-5) 07/14/24 13:33 Ur Squamous Epith Cells 11-20 /hpf (0-5) H 07/14/24 13:33 Amorphous Sediment Not Reportable 07/14/24 13:33 Urine Bacteria 1+ /hpf (NONE) H 07/14/24 13:33 Hyaline Casts 2.46 /lpf 07/14/24 13:33 Influenza A (PCR) Negative (Negative) 07/14/24 12:30 Influenza Type B (PCR) Negative (Negative) 07/14/24 12:30 RSV (PCR) Negative (Negative) 07/14/24 12:30 SARS-CoV-2 (PCR) Negative (Negative) 07/14/24 12:30 All radiology interpretation(s) finalized by discharge Discharge Plan Discharge Patient Disposition: Home Clinical Impression: Viral illness, LFT elevation Condition: Stable Prescriptions: No Action oseltamivir [Tamiflu] 75 mg capsule 75 mg PO BID 5 Days Qty: 10 0RF albuterol sulfate 90 mcg/actuation HFA aerosol inhaler 2 puff inhalation Q6H PRN (Reason: shortness of breath or wheezing) Qty: 8.5 0RF ondansetron 4 mg tablet,disintegrating 4 mg PO Q6H PRN (Reason: nausea and vomiting) Qty: 14 0RF naproxen [Naprosyn] 500 mg tablet 500 mg PO Q12H Discharge Orders: Discharge ED (Routine); Ordered 07/14/24 Ordered By: Ellie Carpenter Referrals: Jagjit Flores MD [Primary Care Provider, [facility]] Patient Instructions: Viral Syndrome (ED) Activity Restrictions/Additional Instructions: As we discussed, continue lots of fluids and rest at home. Please follow-up with primary care next week. As we discussed, you were found to have elevated liver enzymes today. These have been somewhat elevated in the past as well. Please have primary care continue to monitor these closely. Print Language: Malay Coding Level of Care Code ED Carpet Winder for Veronique Herbert
[2024-07-14 13:21] LABS: Influenza A NEGATIVE (Negative); Influenza B NEGATIVE (Negative); Respiratory Syncytial Virus Ce NEGATIVE (Negative); SARS-CoV-2 PCR NEGATIVE (Negative)
--- NOTE | 2024-07-14 13:27 | ECG_ITS ---
[facility] Communications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 Requested By: Ellie Carpenter Order Number: [id number] Ladarius MD: NOÉ FLYNN Measurements Intervals [place] Rate: 98 P: 81 DC: 149 QRS: 112 QRSD: 86 T: 67 QT: 339 QTc: 434 Interpretive Statements SINUS RHYTHM WITH FREQUENT VENTRICULAR PREMATURE COMPLEXES RIGHT ATRIAL ENLARGEMENT [0.3mV P-WAVE] INDETERMINATE AXIS POSSIBLE RIGHT VENTRICULAR CONDUCTION DELAY [RSR (QR) IN V1/V2] LEFT POSTERIOR FASCICULAR BLOCK [QRS AXIS > 109, INFERIOR Q] No previous ECG available for comparison Electronically Signed On 07-19-2024 22:59:30 CDT by NOÉ FLYNN [email or web address]
[2024-07-14 13:48] LABS: Basophils % 0.4 %; Eosinophils # 0.2 10^3/uL (0.0-0.8); Eosinophils % 2.6 %; Hematocrit 43.3 % (36-47); Lymphocytes # 1.6 10^3/uL (0.8-4.8); Lymphocytes % 23.4 %; Mean Corpuscular HGB Conc 32.6 g/dL (30-55); Mean Corpuscular Hemoglobin 29.4 pg (27-33); Mean Corpuscular Volume 90.4 fl (85-98); Mean Platelet Volume 10.2 fL (7.4-10.4); Monocytes # 0.8 10^3/uL (0.2-0.9); Monocytes % 12.1 %; Neutrophils # 4.24 10^3/uL (1.8-7.7); Neutrophils % 60.9 %; Nucleated Red Blood Cells % 0 %; Platelet Count 280 10^3/cmm (157-399); Red Blood Count 4.79 10^6/uL (3.85-5.65); Red Cell Distribution Width 12.4 % (12.1-15.1); White Blood Count 6.96 10^3/uL (3.29-11.43)
[2024-07-14 13:48] LABS: Bilirubin Urine 1+ (Negative); Blood Urine Negative (Negative); Glucose Urine UA Negative (Normal); Ketones Urine Trace (Negative); Leukocyte Esterase Urine Negative (Negative); Nitrate Urine Negative (Negative); Protein Urine 1+ (Negative); Specific Gravity, Urine 1.024 (1.005-1.030); Urine Appearance Clear (CLEAR); Urine Color Dark Yellow (Yellow)
[2024-07-14 13:49] LABS: HCG Qualitative Urine. Negative (Negative)
[2024-07-14] MEDS: ibuprofen 600 mg Tablet PO (13:51)
[2024-07-14 13:54] LABS: Add Urine Microscopic? YES; Bacteria Urine 1+ /hpf; Hyaline Casts Urine 2.46 /lpf; RBC Urine 0-2 /hpf (0-2); WBC Urine 0-5 /hpf (0-5)
[2024-07-14 14:03] LABS: Alanine Aminotransferase 124 U/L (0-33); Albumin Level 4.1 g/dL (3.5-5.2); Alkaline Phosphatase 113 U/L (35-105); Anion Gap 16.5 (5-19); Aspartate Amino Transferase 67 U/L (0-32); Blood Urea Nitrogen 10 mg/dL (6-20); Calcium 8.9 mg/dL (8.5-10.5); Carbon Dioxide 24 mmol/L (22-29); Chloride 103 mmol/L (98-107); Creatinine Clr Calc Pharmacy 129.9544; Glucose 83 mg/dL (65-115); Osmolality Calculated 288 mOsm/kg (285-295); Potassium 3.5 mmol/L (3.5-5.1); Sodium 140 mmol/L (136-145); Total Bilirubin 0.3 mg/dL (0.15-1.2); Total Protein 7.1 g/dL (6.6-8.7)
[2024-07-14 14:30] LABS: Lipase 14 U/L (13-60)
[2024-07-14 14:50] VITALS: BP 120/76; PULSE 78; RESP 16; O2SAT 98
== END 2024-07-14 14:50 | disposition home or self-care (01) ==
PROVIDERS: Emergency Medicine; Emergency Provider Physician Assistant; PCP Family Medicine
DX: B34.9 Viral infection, unspecified (principal); R74.01 Elevation of levels of liver transaminase levels; Z11.52 Encounter for screening for COVID-19; Z79.02 Long term (current) use of antithrombotics/antiplatelets
CPT/HCPCS: 36415; 71045; 80053; 81001; 81025; 83690; 85025; 87637; 93005; 99285; J9999

== ENCOUNTER 2024-10-16 22:36 | Emergency (ER) | payer MEDICAID, SELFPAY ==
[2024-10-16 22:44] VITALS: BP 109/74; PULSE 102; RESP 16; TEMP 36.6; O2SAT 100; BMI 19.6
[2024-10-17 01:14] LABS: Glucose Urine UA Negative (Normal); Nitrate Urine Negative (Negative)
[2024-10-17 01:19] LABS: Add Urine Microscopic? YES
[2024-10-17 01:20] LABS: Specific Gravity, Urine 1.040 (1.005-1.030)
--- NOTE | 2024-10-17 01:33 | W.ED.BACK ---
HPI - Back Pain/Injury General: Chief Complaint: Back Pain/Injury Stated Complaint: Lump on back Rt Side Time Seen by Provider: 10/17/24 00:11 History of Present Illness: 24-year-old female presents emergency room complaining of some lumps in her low back at the belt line she has noticed are more tender with palpation. She also little bit of cough sore throat clear nasal drainage no fever sweats chills no hemoptysis. Denies abdominal pain no dysuria urgency or frequency Associated symptoms: Deny abdominal pain, chills, dysuria, fever(s) or urinary urgency Related Data Home Medications ?Medication ?Instructions ?Recorded ?Confirmed naproxen 500 mg tablet (Naprosyn) 500 mg PO Q12H 01/17/24 10/08/24 Previous Rx's ?Medication ?Instructions ?Recorded ondansetron 4 mg disintegrating 4 mg PO Q6H PRN nausea and 01/17/24 tablet vomiting #14 tabs albuterol sulfate 90 mcg/actuation 2 puff inhalation Q6H PRN 05/08/24 aerosol inhaler shortness of breath or wheezing #8.5 grams azithromycin 250 mg tablet See Rx Instructions PO .COMPLEX #6 10/08/24 tabs prednisone 20 mg tablet 20 mg PO DAILY 5 days #5 tabs 10/08/24 cetirizine 10 mg tablet 10 mg PO BID PRN allergy symptoms 10/17/24 #60 tabs methylprednisolone 4 mg tablets in See Rx Instructions PO .COMPLEX 10/17/24 a dose pack (Medrol (Adan)) #21 ea Allergies Allergy/AdvReac Type Severity Reaction Status Date / Time latex Allergy ALGY-Hives Verified 10/08/24 11:45 loratadine (From Claritin) Allergy hives Verified 10/08/24 11:45 Review of Systems Const: Denies: fever(s) or chills ENMT: Reports: nasal discharge (Clear) and nasal congestion Card: Denies: chest pain Resp: Reports: non-productive cough; Denies: dyspnea GI: Denies: abdominal pain : Denies: dysuria, urinary frequency or urinary urgency Musc: Denies: neck pain or back pain Skin/Breast: Denies: rash PFSH ED PFSH: Medical History (Updated 10/17/24 @ 01:46 by Misbah Diaz DO) Migraines No pertinent past medical history neghx: htn,dm,thyroid,dvt/pe PCP: Surgical History History of section (~10/05/23) Repeat low-transverse section performed by Dr. Hassan at [facility] H/O section 11/06/2021: primary low transverse delivery performed by Dr. Hassan at [facility]. Family History Grandmother Colon cancer Maternal--dx age unknown Hypertension Paternal Family/Other Diabetes Maternal Aunt Grandfather Hypertension Paternal Denies family history of Ovarian cancer Clotting disorder Heart disease Hypercholesteremia Breast cancer Anesthesia complication Bleeding disorder Uterine cancer Thyroid disease Stroke Social History Smoking and tobacco/nicotine status: never used tobacco/nicotine Female Reproductive History: Para: 0 Physical Exam Const: COMMON NORMALS: no acute distress GENERAL APPEARANCE: cooperative ORIENTATION/CONSCIOUSNESS: Yes awake, Yes oriented to person, Yes oriented to place and Yes oriented to time HENMT: COMMON NORMALS: normocephalic, atraumatic, hearing grossly normal bilaterally, external ears normal, EAC's normal, TM's normal bilaterally and Normal nasal mucous membranes and turbinates present HEAD & SCALP: normocephalic and atraumatic NOSE: Normal nasal mucous membranes and turbinates present EXTERNAL EAR: Yes external ears normal EXTERNAL AUDITORY CANAL: EAC's normal TYMPANIC MEMBRANE: TM's normal bilaterally Eye: COMMON NORMALS: Equal, round and reactive pupils present, EOMs intact bilaterally, conjunctivae normal and no scleral icterus CONJUNCTIVA: Yes conjunctivae normal PUPIL: Yes Equal, round and reactive pupils present Neck/C-Spine: COMMON NORMALS: full ROM, no lymphadenopathy, supple and no JVD Lymph: LYMPHATIC: no lymphadenopathy noted and no lymphedema noted Resp: COMMON NORMALS: normal respiratory effort, No retractions, No use of accessory muscles and clear to auscultation bilaterally AUSCULTATION: clear to auscultation bilaterally Cardio: COMMON NORMALS: no JVD, regular rate, regular rhythm and No murmurs present (Cardio) RATE: regular rate RHYTHM: regular rhythm GI: COMMON NORMALS: Soft to palpation and No hepatosplenomegaly present AUSCULTATION: Yes normoactive bowel sounds PALPATION: Yes Soft to palpation, No Tenderness to palpation present (GI), No Guarding due to palpation present (GI) and Yes No hepatosplenomegaly present Back/Pelvis: OTHER: Firm well-circumscribed palpable lipomas along the belt line. No overlying erythema no fluctuance Extremity: COMMON NORMALS: normal to inspection, capillary refill normal, no clubbing, cyanosis or edema, no calf tenderness and no pedal edema Neuro: SENSORIUM/ORIENTATION: Yes oriented to person, Yes oriented to place and Yes oriented to time Skin: COMMON NORMALS: no rashes or lesions noted GENERAL SKIN EXAM: no rashes or lesions noted Course Vital Signs: Vital signs: Vital Signs Temperature 97.9 F 10/16/24 22:44 Pulse Rate 102 H 10/16/24 22:44 Respiratory Rate 16 10/16/24 22:44 Blood Pressure 109/74 10/16/24 22:44 Pulse Oximetry 100 10/16/24 22:44 Oxygen Delivery Me thod Room Air 10/16/24 22:44 MDM - Back Pain/Injury Medical Decision Making Seasonal allergies will treat with cetirizine 10 mg twice daily also give steroid taper. Referred to primary care they can refer for excision of the lipomas if she wishes to pursue. Medical Records I reviewed the patient's medical records. Labs I reviewed the patient's lab results. Laboratory Results Urine Color Dark yellow (Yellow) A 10/17/24 00:51 Urine Appearance Clear (CLEAR) 10/17/24 00:51 Urine pH 5.5 (5-7) 10/17/24 00:51 Ur Specific [place] 1.040 (1.005-1.030) H 10/17/24 00:51 Urine Protein Trace (Negative) A 10/17/24 00:51 Urine Glucose (UA) Negative (Normal) 10/17/24 00:51 Urine Ketones Trace (Negative) 10/17/24 00:51 Urine Blood Negative (Negative) 10/17/24 00:51 Urine Nitrate Negative (Negative) 10/17/24 00:51 Urine Bilirubin Negative (Negative) 10/17/24 00:51 Urine Urobilinogen 1.0 mg/dL (Negative) 10/17/24 00:51 Ur Leukocyte Esterase Negative (Negative) 10/17/24 00:51 Urine RBC 0-2 /hpf (0-2) 10/17/24 00:51 Urine WBC 6-10 /hpf (0-5) 10/17/24 00:51 Ur Squamous Epith Cells 0-5 /hpf (0-5) 10/17/24 00:51 Amorphous Sediment Not Reportable 10/17/24 00:51 Urine Bacteria None seen /hpf (NONE) 10/17/24 00:51 Hyaline Casts 4.95 /lpf 10/17/24 00:51 No radiology studies performed this visit Discharge Plan Discharge Patient Disposition: Home Clinical Impression: Seasonal allergies, Lipoma of back Condition: Stable Prescriptions: New methylprednisolone [Medrol (Adan)] 4 mg tablets,dose pack See Rx Instructions .ROUTE .COMPLEX Qty: 21 0RF Rx Instructions: orally per package directions cetirizine 10 mg tablet 10 mg PO BID PRN (Reason: allergy symptoms) Qty: 60 0RF No Action albuterol sulfate 90 mcg/actuation HFA aerosol inhaler 2 puff inhalation Q6H PRN (Reason: shortness of breath or wheezing) Qty: 8.5 0RF azithromycin 250 mg tablet See Rx Instructions PO .COMPLEX Qty: 6 0RF Rx Instructions: take 500 mg today (day 1), then 250 mg for 4 days (days 2-5) PO prednisone 20 mg tablet 20 mg PO DAILY 5 Days Qty: 5 0RF ondansetron 4 mg tablet,disintegrating 4 mg PO Q6H PRN (Reason: nausea and vomiting) Qty: 14 0RF naproxen [Naprosyn] 500 mg tablet 500 mg PO Q12H Discharge Orders: Discharge ED (Routine); Ordered 10/17/24 Ordered By: Misbah Diaz Referrals: Jagjit Flores MD [Primary Care Provider, Family Practice] Discharge Diet: Usual diet Discharge Activity: Resume usual activity Patient Instructions: Opioid Safety, Pain Management, Patient Portal & [employer] Instructions Activity Restrictions/Additional Instructions: Thank you for choosing [facility] for your healthcare needs today. It is very important that you follow up as instructed or that you return to the Emergency Department should you have concerns or if your condition changes or worsens in any way. Emergency department visits are focused on emergent conditions, in some cases you may require further evaluation on an outpatient basis. You were seen in the emergency room with complaints of lumps on the low back. On exam these appear to be lipomas follow-up your primary care doctor if you wish to have them removed he can direct you to surgery for excision if desired. These are generally benign and do not require removal. He also complained of a sinus drainage cough sore throat. Your exam was unremarkable suspect it may be due to allergies recommend cetirizine 10 mg twice a day as well as prednisone taper follow-up with primary care doctor if symptoms persist (Please note that included in your discharge packet is information concerning opioid safety and pain management. This information is given to all patients were discharged from the ER regardless of their discharge diagnosis or the medicines they usually take or are prescribed.) Print Language: Danish Coding Level of Care Code ED Morgue Attendant for Veronique Herbert
== END 2024-10-17 01:59 | disposition home or self-care (01) ==
PROVIDERS: Emergency Provider Family Medicine; PCP Family Medicine
DX: D17.1 Benign lipomatous neoplasm of skin and subcutaneous tissue of trunk (principal); J30.2 Other seasonal allergic rhinitis
CPT/HCPCS: 81001; 99283

== ENCOUNTER → 2024-12-31 14:46 | Outpatient (BNVA) | payer MEDICAID, SELFPAY | PROVIDERS: PCP Family Medicine; Visit Provider Emergency Medicine | DX: R10.20 Pelvic and perineal pain unspecified side (principal) | CPT/HCPCS: 81000; 81025 ==

== ENCOUNTER 2025-01-01 18:58 | Emergency (ER) | payer MEDICAID, SELFPAY ==
[2025-01-01 19:08] VITALS: BP 103/71; PULSE 70; RESP 17; TEMP 36.6; O2SAT 99; BMI 17.6
--- NOTE | 2025-01-01 20:21 | W.ED.ABDPA2 ---
HPI - Abdominal Pain General: Chief Complaint: Abdominal Pain Stated Complaint: Sore Throat\ABD Pain History of Present Illness: Patient is a pleasant 24-year-old female that presents to the Emergency Department today with 2 days of sore throat, suprapubic pain. She is not having any dysuria or frequency. She has 1 sexual partner, her . She does wipe front to back and void after intercourse Her throat feels like a burning difficult to swallow feeling. She has no hoarseness. No fevers. No exposure to illness. Associated Symptoms: Denies chills, constipation, diarrhea, fever(s), hematochezia, nausea and vomiting Related Data Home Medications ?Medication ?Instructions ?Recorded ?Confirmed naproxen 500 mg tablet (Naprosyn) 500 mg PO Q12H 01/17/24 12/31/24 Previous Rx's ?Medication ?Instructions ?Recorded ondansetron 4 mg disintegrating 4 mg PO Q6H PRN nausea and 01/17/24 tablet vomiting #14 tabs albuterol sulfate 90 mcg/actuation 2 puff inhalation Q6H PRN 05/08/24 aerosol inhaler shortness of breath or wheezing #8.5 grams azithromycin 250 mg tablet See Rx Instructions PO .COMPLEX #6 10/08/24 tabs prednisone 20 mg tablet 20 mg PO DAILY 5 days #5 tabs 10/08/24 cetirizine 10 mg tablet 10 mg PO BID PRN allergy symptoms 10/17/24 #60 tabs methylprednisolone 4 mg tablets in See Rx Instructions PO .COMPLEX 10/17/24 a dose pack (Medrol (Adan)) #21 ea cefdinir 300 mg capsule 300 mg PO BID 10 days #20 caps 01/01/25 Allergies Allergy/AdvReac Type Severity Reaction Status Date / Time latex Allergy ALGY-Hives Verified 10/08/24 11:45 loratadine (From Claritin) Allergy hives Verified 10/08/24 11:45 Review of Systems General: Reports: 10 or more systems reviewed and unremarkable except in HPI and below Const: Denies: fever(s), chills or fatigue ENMT: Reports: throat pain; Denies: ear or mastoid pain, nasal congestion or sinus pain Card: Denies: chest pain, palpitations or swelling of feet/ankles Resp: Denies: dyspnea or productive cough GI: Reports: abdominal pain; Denies: nausea, vomiting, diarrhea, constipation or hematochezia : Denies: flank pain or difficulty voiding Musc: Denies: back pain or extremity swelling Skin/Breast: Denies: rash Neuro: Denies: headache(s), numbness in extremities, weakness in extremities or confusion Psych: Denies: anxiety or depression ON LICENSE OF [facility] ED PFSH: Medical History (Updated 01/01/25 @ 21:42 by HUY Khan) Migraines No pertinent past medical history neghx: htn,dm,thyroid,dvt/pe PCP: Surgical History History of section (~10/05/23) Repeat low-transverse section performed by Dr. Hassan at [facility] H/O section 11/06/2021: primary low transverse delivery performed by Dr. Hassan at [facility]. Family History Grandmother Colon cancer Maternal--dx age unknown Hypertension Paternal Family/Other Diabetes Maternal Aunt Grandfather Hypertension Paternal Denies family history of Ovarian cancer Clotting disorder Heart disease Hypercholesteremia Breast cancer Anesthesia complication Bleeding disorder Uterine cancer Thyroid disease Stroke Social History Smoking and tobacco/nicotine status: current every day tobacco/nicotine user Female Reproductive History: Para: 0 Physical Exam Const: COMMON NORMALS: no acute distress, average body habitus and patient oriented x3 GENERAL APPEARANCE: cooperative and comfortable HENMT: COMMON NORMALS: Normal external nose present NOSE: Normal external nose present and Normal nares present MOUTH: Abnormal oral and palatal mucosa present erythematous and edematous (Mild, non touching) Neck/C-Spine: GENERAL: Yes lymphadenopathy Lymphadenopathy location: anterior cervical (Bilateral, left greater than right) Chest: COMMONS NORMALS: normal inspection of the chest and normal palpation of entire chest wall Resp: COMMON NORMALS: normal respiratory effort, No retractions, No use of accessory muscles and clear to auscultation bilaterally EFFORT & INSPECTION: Yes able to speak in complete sentences AUSCULTATION: clear to auscultation bilaterally Cardio: COMMON NORMALS: regular rate and regular rhythm RATE: regular rate RHYTHM: regular rhythm GI: COMMON NORMALS: Soft to palpation, non-tender and No hepatosplenomegaly present AUSCULTATION: Yes normoactive bowel sounds PALPATION: Yes Soft to palpation and Yes No hepatosplenomegaly present OTHER: Suprapubic tenderness : COMMON NORMALS: Yes no CVA tenderness BLADDER/KIDNEY EXAM: Yes no CVA tenderness Back/Pelvis: COMMON NORMALS: no CVA tenderness Neuro: COMMON NORMALS: patient oriented x3 Course Reevaluation(s): Reevaluation #1: Patient updated on results. KUB ordered. No change Vital Signs: Vital signs: Vital Signs Temperature 97.8 F 01/01/25 19:08 Pulse Rate 70 01/01/25 19:08 Respiratory Rate 17 01/01/25 19:08 Blood Pressure 102/60 01/01/25 21:06 Pulse Oximetry 94 01/01/25 21:06 Oxygen Delivery Me thod Room Air 01/01/25 21:06 MDM - Abdominal Pain Medical Decision Making Patient has suprapubic tenderness noted, as well as a sore throat. Strep is negative. Cultures pending. No rashes. No red flags. As far as her abdomen, she had minimal WBCs, however will culture this urine, and treat for now given her tenderness. No CVA tenderness. No sexual partner changing. Patient agrees with the plan. Medical Records I reviewed the patient's medical records. Lab Data I reviewed the patient's lab results. Labs/Radiology: Radiology Impressions KUB X-Ray 01/01/25 21:11 IMPRESSION: No acute abdominal or pelvic pathologic process identified. Laboratory Results HCG, Qual Negative (Negative) 01/01/25 19:00 Urine Color Yellow (Yellow) 01/01/25 19:00 Urine Appearance Cloudy (CLEAR) A 01/01/25 19:00 Urine pH 7.5 (5-7) 01/01/25 19:00 Ur Specific Kelliher 1.017 (1.005-1.030) 01/01/25 19:00 Urine Protein Negative (Negative) 01/01/25 19:00 Urine Glucose (UA) Negative (Normal) 01/01/25 19:00 Urine Ketones Negative (Negative) 01/01/25 19:00 Urine Blood Negative (Negative) 01/01/25 19:00 Urine Nitrate Negative (Negative) 01/01/25 19:00 Urine Bilirubin Negative (Negative) 01/01/25 19:00 Urine Urobilinogen 0.2 mg/dL (Negative) 01/01/25 19:00 Ur Leukocyte Esterase Negative (Negative) 01/01/25 19:00 Urine RBC 0-2 /hpf (0-2) 01/01/25 19:00 Urine WBC 0-5 /hpf (0-5) 01/01/25 19:00 Ur Squamous Epith Cells 6-10 /hpf (0-5) 01/01/25 19:00 Amorphous Sediment Not Reportable 01/01/25 19:00 Urine Bacteria None seen /hpf (NONE) 01/01/25 19:00 Hyaline Casts 0.81 /lpf 01/01/25 19:00 Group A Strep Rapid Negative (Negative) 01/01/25 20:33 XR interpretation done by ED provider, pending radiology final review ED provider radiology interpretation(s): no acute findings Discharge Plan Discharge Patient Disposition: Home Clinical Impression: Pyuria Condition: Stable Prescriptions: New cefdinir 300 mg capsule 300 mg PO BID 10 Days Qty: 20 0RF No Action albuterol sulfate 90 mcg/actuation HFA aerosol inhaler 2 puff inhalation Q6H PRN (Reason: shortness of breath or wheezing) Qty: 8.5 0RF azithromycin 250 mg tablet See Rx Instructions PO .COMPLEX Qty: 6 0RF Rx Instructions: take 500 mg today (day 1), then 250 mg for 4 days (days 2-5) PO prednisone 20 mg tablet 20 mg PO DAILY 5 Days Qty: 5 0RF ondansetron 4 mg tablet,disintegrating 4 mg PO Q6H PRN (Reason: nausea and vomiting) Qty: 14 0RF naproxen [Naprosyn] 500 mg tablet 500 mg PO Q12H methylprednisolone [Medrol (Adan)] 4 mg tablets,dose pack See Rx Instructions .ROUTE .COMPLEX Qty: 21 0RF Rx Instructions: orally per package directions cetirizine 10 mg tablet 10 mg PO BID PRN (Reason: allergy symptoms) Qty: 60 0RF Discharge Orders: Discharge ED (Routine); Ordered 01/01/25 Ordered By: Noemi Shane Referrals: Jagjit Flores MD [Primary Care Provider, Family Practice] Discharge Diet: Usual diet Discharge Activity: Resume usual activity Patient Instructions: Abdominal Pain (ED), Patient Portal & [employer] Instructions Activity Restrictions/Additional Instructions: - Culture on your urine is pending -Antibiotics at the pharmacy: Cefdinir. Use as directed. - Take probiotic or active culture yogurt to avoid infectious diarrhea Thank you for choosing [facility] for your healthcare needs today. You have been screened and evaluated and felt safe for discharge. Health conditions do change or evolve sometimes and as such it is important that you follow up with your Primary Doctor to be re checked, 3-5 days is a general good time frame for follow up. You are always welcome to return to the ED for re assessment if your symptoms are worsening or you have new concerns Print Language: Lao Coding Level of Care Code ED Recruiting Manager for Veronique Herbert
[2025-01-01 20:22] LABS: Glucose Urine UA Negative (Normal); Nitrate Urine Negative (Negative); Specific Gravity, Urine 1.017 (1.005-1.030)
[2025-01-01 20:24] LABS: HCG Qualitative Urine. Negative (Negative)
[2025-01-01 20:26] LABS: Add Urine Microscopic? YES
[2025-01-01 20:46] LABS: Rapid Strep A Test Negative (Negative)
[2025-01-01 20:55] VITALS: BP 99/51; O2SAT 95
[2025-01-01 21:06] VITALS: BP 102/60; O2SAT 94
--- NOTE | 2025-01-01 21:11 | XRR_ITS ---
PROCEDURE INFORMATION: Exam: XR Abdomen Exam date and time: 01/01/2025 9:23 PM Age: 24 years old Clinical indication: Abdominal pain; Localized; Lower; Prior surgery; Surgery date: 6+ months; Surgery type: TECHNIQUE: Imaging protocol: Radiologic exam of the abdomen. Views: Frontal supine view of the abdomen. 1 View. Total images: 1 COMPARISON: 1. CT abdomen pelvis w con* [id number] 01/17/2024 6:[address] abdomen pelvis w con* [id number] 04/30/2020 3:14 PM 3. CR XR chest 1V portable [id number] 07/14/2024 12:27 PM 4. CR XR hip RT 2-3V wo/w pel* [id number] 12/03/2023 3:28 PM FINDINGS: Gastrointestinal tract: No pathologic bowel distension or bowel wall thickening. Bones/joints: No intrinsic osseous abnormality identified. Soft tissues: Soft tissues are normal as visualized, demonstrating no masses or swelling/induration. XR/XR KUB portable [id number] IMPRESSION: No acute abdominal or pelvic pathologic process identified.
--- NOTE | 2025-01-01 21:51 | PC.NURSE ---
This nurse went to give ABX to this pt and it would not scan due to being messed up. So this nurse went to [facility] and scanned one from the [facility].
== END 2025-01-01 21:53 | disposition home or self-care (01) ==
PROVIDERS: Emergency Provider Physician Assistant; PCP Family Medicine
DX: R82.81 Pyuria (principal); Z72.0 Tobacco use
CPT/HCPCS: 74018; 81001; 81025; 87081; 87086; 87880; 99284; J9999